=== PATIENT | male | born 1945 | race Caucasian/White ===

== ENCOUNTER 2019-02-09 01:48 | Inpatient (IN) | payer OTHER ==
--- NOTE | 2019-02-09 02:26 | EDPHYS ---
Physician Documentation [facility] Name: Jomar Ta Age: 73 yrs Sex: Male : 1945 Arrival Date: 02/09/2019 Time: 02:01 Bed 8 Private MD: ED Physician Laurent Wilson HPI: 02/09 02:07 This 73 yrs old Male presents to ER via EMS with complaints of chest pain. rn 02:07 The patient or guardian reports chest pain that is located primarily in the substernal rn area. Onset: last night. The pain does not radiate. Associated signs and symptoms: Pertinent positives: shortness of breath, Pertinent negatives: abdominal pain, cough, diaphoresis, lightheadedness, palpitations. The chest pain is described as a pressure, squeezing. Duration: The patient or guardian reports multiple episodes, that are intermittent. Modifying factors: The symptoms are alleviated by NTG. Severity of pain: At its worst the pain was moderate in the emergency department the pain has resolved. The patient has experienced similar episodes in the past. Reports chest pressure/heaviness that has increased in frequency, reports before only having to use nitro every few days and would relieve pain. Since last night has had to take 6 separate occasions. Currently chest pain free. Denies fever/cough/trauma. . Historical: - Allergies: 02:11 No Known Allergies; fc - Home Meds: 02:11 [place] 10-325 mg Oral tab 1 tab q4hrs prn [Active]; carvedilol 6.25 mg Oral tab 1 tab 2 fc times per day for Hypertension [Active]; amitriptyline 10 mg Oral tab 1 tab nightly [Active]; levothyroxine 100 mcg tab 1 tab once daily [Active]; clopidogrel 75 mg Oral tab 1 tab once daily [Active]; losartan 100 mg oral tab 1 tab once daily [Active]; atorvastatin 40 mg oral tab 1 tab once daily [Active]; aspirin 81 mg Oral TbEC 1 tab once daily [Active]; loratadine 10 mg oral tab 1 tab once daily [Active]; hydrochlorothiazide 12.5 mg Oral tab 1 tab 2 times per day [Active]; - PMHx: 02:11 Back pain; Cancer; Skin Caner; COPD; Myocardial infarction; CVA; Atrial Fib; fc Hyperlipidemia; Hypertension; Hypothyroidism; - PSHx: 02:11 CABG; Heart stents; fc - Immunization history:: Last tetanus immunization: up to date Flu vaccine is up to date. - Social history:: Smoking status: Patient uses tobacco products, smokes one-half pack cigarettes per day, Patient/guardian denies using alcohol, street drugs. - Ebola Screening: : Patient negative for fever greater than or equal to 101.5 degrees Fahrenheit, and additional compatible Ebola Virus Disease symptoms Patient denies exposure to infectious person Patient denies travel to an Ebola-affected area in the 21 days before illness onset. - Family history:: not pertinent. - Hospitalizations: : No recent hospitalization is reported. ROS: 02:07 Constitutional: Negative for fever, chills, and weight loss, Eyes: Negative for injury, rn pain, redness, and discharge, Cardiovascular: Negative for palpitations, and edema, Respiratory: Negative for shortness of breath, cough, wheezing, and pleuritic chest pain, Abdomen/GI: Negative for abdominal pain, nausea, vomiting, diarrhea, and constipation, MS/Extremity: Negative for injury and deformity, Skin: Negative for injury, rash, and discoloration, Neuro: Negative for headache, weakness, numbness, tingling, and seizure. Exam: 02:07 Constitutional: Overweight male, no acute distress Head/Face: Normocephalic, rn atraumatic. ENT: MMM Cardiovascular: Regular rate and rhythm. No pulse deficits. Respiratory: No increased work of breathing, no retractions or nasal flaring. Abdomen/GI: soft, non-tender MS/ Extremity: Pulses equal, no cyanosis. Neurovascular intact. Full, normal range of motion. + mild edema bilateral lower ext Neuro: Awake and alert, GCS 15, oriented to person, place, time, and situation. Cranial nerves II-XII grossly intact. Motor strength 5/5 in all extremities. Sensory grossly intact. Vital Signs: 01:46 BP 178 / 85; Pulse 86; Resp 18; Temp 97.7(O); Pulse Ox 100% on R/A; Weight 90.72 kg fc (R); Height 5 ft. 10 in. (177.80 cm) (R); Pain 3/10; 02:26 BP 142 / 79; Pulse 81; Resp 18; Pulse Ox 97% on R/A; ak1 03:01 BP 162 / 70; Pulse 82; Resp 20; Pulse Ox 97% ; ea 03:48 BP 136 / 66; Pulse 80; Resp 18; Pulse Ox 97% on R/A; ea 01:46 Body Mass Index 28.70 (90.72 kg, 177.80 cm) fc MDM: 02:02 Patient medically screened. rn 02:22 Differential diagnosis: acute myocardial infarction, coronary artery disease congestive rn visiting failure unstable angina. Data reviewed: vital signs, nurses notes, EKG, and as a result, I will admit patient. Counseling: I had a detailed discussion with the patient and/or guardian regarding: the historical points, exam findings, and any diagnostic results supporting the discharge/admit diagnosis, the need for further work-up and treatment in the hospital. Response to treatment: the patient's symptoms have markedly improved after treatment, and as a result, I will admit patient. 02:24 Admission orders: after a detailed discussion of the patient's condition and case, the airborne and air delivery specialist orders are written by me. 02/09 02:03 Order name: PT-INR; Complete Time: 02:53 02/09 02:03 Order name: Basic Metabolic Panel; Complete Time: 02:53 02/09 02:03 Order name: CBC with Diff; Complete Time: 02:53 02/09 02:03 Order name: NT PRO-BNP; Complete Time: 02:53 02/09 02:03 Order name: Troponin (emerg Dept Use Only); Complete Time: 02:53 02/09 02:31 Order name: Urine Dipstick--Ancillary (enter results); Complete Time: 02:53 cm6 02/09 02:03 Order name: XRAY Chest (1 view) 02/09 03:11 Order name: Lipid Profile [facility] 02/09 03:11 Order name: Lipid Profile [facility] 02/09 03:11 Order name: Troponin I [facility] 02/09 03:11 Order name: Troponin I [facility] 02/09 03:11 Order name: Troponin I [facility] 02/09 02:03 Order name: EKG; Complete Time: 02:04 rn 02/09 02:03 Order name: Cardiac monitoring; Complete Time: 02:28 rn 02/09 02:03 Order name: EKG - Nurse/Tech; Complete Time: 02:28 02/09 02:03 Order name: IV Saline Lock; Complete Time: 02:28 rn 02/09 02:03 Order name: Labs collected and sent; Complete Time: 02:28 rn 02/09 02:03 Order name: O2 Per Protocol; Complete Time: 02:28 rn 02/09 02:03 Order name: O2 Sat Monitoring; Complete Time: 02:28 rn 02/09 03:11 Order name: CONS Physician Consult [facility] 02/09 03:11 Order name: Heart Healthy [facility] 02/09 03:14 Order name: Echo with Doppler [facility] 02/09 03:14 Order name: EKG Electrocardiogram [facility] 02/09 03:14 Order name: EKG Electrocardiogram [facility] Administered Medications: 02:40 Drug: Aspirin Chewable Tablet 324 mg Route: PO; ak1 03:30 Follow up: Response: No adverse reaction; Pain is decreased ea Disposition: 02/09/19 02:24 Hospitalization ordered by Ashley Pace for Observation. Preliminary diagnosis are Chest pain, unspecified, Unstable angina. - Bed requested for Telemetry/MedSurg (observation). - Status is Observation. ea - Condition is Stable. - Problem is new. - Symptoms have improved. UTI on Admission? No Signatures: Dispatcher [employer] [facility] Brynn Sepulveda RN Laurent Funk MD MD rn Lasagna, Tonya RN RN tl1 Geno Pryor RN RN ak1 Glenny De León RN RN ea Corrections: (The following items were deleted from the chart) 03:14 03:11 Lipid Profile ordered. [facility] 03:14 03:11 Lipid Profile ordered. [facility] 03:24 02:24 Hospitalization Ordered by Ashley Pace MD for Observation. Preliminary tl1 diagnosis is Chest pain, unspecified; Unstable angina. Bed requested for Telemetry/MedSurg (observation). Status is Observation. Condition is Stable. Problem is new. Symptoms have improved. UTI on Admission? No. rn 03:58 03:24 02/09/2019 02:24 Hospitalization Ordered by Ashley Pace MD for Observation. ea Preliminary diagnosis is Chest pain, unspecified; Unstable angina. Bed requested for Telemetry/MedSurg (observation). Status is Observation. Condition is Stable. Problem is new. Symptoms have improved. UTI on Admission? No. tl1
--- NOTE | 2019-02-09 02:26 | ER ---
Nurse's Notes [facility] Name: Jomar Ta Age: 73 yrs Sex: Male : 1945 Arrival Date: 02/09/2019 Time: 02:01 Bed 8 Private MD: Diagnosis: Chest pain, unspecified;Unstable angina Presentation: 02/09 01:46 Presenting complaint: Patient states: that he is having chest pain on and off. When he fc has the chest pain he is short of breath but denies any nausea or vomiting. Has used 6 Nitro since 1999 last night. last one at 0100. Transition of care: patient was not received from another setting of care. Onset of symptoms was February 08, 2019 at 20:00. Risk Assessment: Do you want to hurt yourself or someone else? Patient reports no desire to harm self or others. Initial Sepsis Screen: Does the patient meet any 2 criteria? No. Patient's initial sepsis screen is negative. Does the patient have a suspected source of infection? No. Patient's initial sepsis screen is negative. Care prior to arrival: IV initiated. 20 GA, in the right antecubital area. 01:46 Method Of Arrival: EMS: [facility] 01:46 Acuity: CARROLL 3 fc Historical: - Allergies: 02:11 No Known Allergies; fc - Home Meds: 02:11 Media 10-325 mg Oral tab 1 tab q4hrs prn [Active]; carvedilol 6.25 mg Oral tab 1 tab 2 fc times per day for Hypertension [Active]; amitriptyline 10 mg Oral tab 1 tab nightly [Active]; levothyroxine 100 mcg tab 1 tab once daily [Active]; clopidogrel 75 mg Oral tab 1 tab once daily [Active]; losartan 100 mg oral tab 1 tab once daily [Active]; atorvastatin 40 mg oral tab 1 tab once daily [Active]; aspirin 81 mg Oral TbEC 1 tab once daily [Active]; loratadine 10 mg oral tab 1 tab once daily [Active]; hydrochlorothiazide 12.5 mg Oral tab 1 tab 2 times per day [Active]; - PMHx: 02:11 Back pain; Cancer; Skin Caner; COPD; Myocardial infarction; CVA; Atrial Fib; fc Hyperlipidemia; Hypertension; Hypothyroidism; - PSHx: 02:11 CABG; Heart stents; fc - Immunization history:: Last tetanus immunization: up to date Flu vaccine is up to date. - Social history:: Smoking status: Patient uses tobacco products, smokes one-half pack cigarettes per day, Patient/guardian denies using alcohol, street drugs. - Ebola Screening: : Patient negative for fever greater than or equal to 101.5 degrees Fahrenheit, and additional compatible Ebola Virus Disease symptoms Patient denies exposure to infectious person Patient denies travel to an Ebola-affected area in the 21 days before illness onset. - Family history:: not pertinent. - Hospitalizations: : No recent hospitalization is reported. Screenin:46 Abuse screen: Denies threats or abuse. Nutritional screening: No deficits noted. fc Tuberculosis screening: No symptoms or risk factors identified. Fall Risk None identified. Assessment: 02:26 General: Appears in no apparent distress. comfortable, Behavior is calm, cooperative. ak1 Pain: Complains of pain in chest. Neuro: Level of Consciousness is awake, alert, obeys commands, Oriented to person, place, time, situation. Cardiovascular: Reports chest pain, since 1999 last night. Respiratory: Airway is patent. GI: No signs and/or symptoms were reported involving the gastrointestinal system. : No signs and/or symptoms were reported regarding the genitourinary system. EENT: No signs and/or symptoms were reported regarding the EENT system. Derm: No signs and/or symptoms reported regarding the dermatologic system. Musculoskeletal: No signs and/or symptoms reported regarding the musculoskeletal system. 03:08 Reassessment: Patient and/or family updated on plan of care and expected duration. Pain ea level reassessed. Patient is alert, oriented x 3, equal unlabored respirations, skin warm/dry/pink. 03:57 Reassessment: Patient and/or family updated on plan of care and expected duration. Pain ea level reassessed. Patient is alert, oriented x 3, equal unlabored respirations, skin warm/dry/pink. Pt admitted to fourth floor, left ED via wheelchair per tech, accompanied by . Pt tolerating well. No s/s of pain or discomfort noted at this time. Vital Signs: 01:46 BP 178 / 85; Pulse 86; Resp 18; Temp 97.7(O); Pulse Ox 100% on R/A; Weight 90.72 kg fc (R); Height 5 ft. 10 in. (177.80 cm) (R); Pain 3/10; 02:26 BP 142 / 79; Pulse 81; Resp 18; Pulse Ox 97% on R/A; ak1 03:01 BP 162 / 70; Pulse 82; Resp 20; Pulse Ox 97% ; ea 03:48 BP 136 / 66; Pulse 80; Resp 18; Pulse Ox 97% on R/A; ea 01:46 Body Mass Index 28.70 (90.72 kg, 177.80 cm) ED Course: 01:46 Arm band placed on Patient placed in an exam room, on a stretcher. fc 01:46 Patient has correct armband on for positive identification. Placed in gown. Bed in low fc position. Call light in reach. Side rails up X2. apprentice lineman third step on. Pulse ox on. NIBP on. 01:46 No provider procedures requiring assistance completed. Maintain EMS IV. Dressing fc intact. Good blood return noted. Site clean \T\ dry. Gauge \T\ site: 20 gauge to right a/c. 02:01 Patient arrived in ED. rn 02:01 Laurent Wilson MD is Attending Physician. rn 02:06 Triage completed. 02:24 Ashley Pace MD is Hospitalizing Provider. rn 02:26 Geno Pryor, RN is Primary Nurse. ak1 02:26 Patient admitted, IV remains in place. ak1 Administered Medications: 02:40 Drug: Aspirin Chewable Tablet 324 mg Route: PO; ak1 03:30 Follow up: Response: No adverse reaction; Pain is decreased ea Outcome: 02:24 Decision to Hospitalize by Provider. rn 03:07 Instructed on the need for admit, Demonstrated understanding of instructions. ea 03:48 Admitted to Med/surg accompanied by [facility], room 429, with chart, Report called to Edie koehler RN 03:48 Condition: stable 03:58 Patient left the ED. ea Signatures: Brynn Sepulveda RN RN Laurent Wilson MD MD rn Krenek, Amber, RN RN ak1 Glenny De León RN RN ea Corrections: (The following items were deleted from the chart) 03:59 03:57 Reassessment: Patient and/or family updated on plan of care and expected ea duration. Pain level reassessed. Patient is alert, oriented x 3, equal unlabored respirations, skin warm/dry/pink. Pt admitted to fourth floor, left ED via wheelchair per tech. Pt tolerating well. No s/s of pain or discomfort noted at this time. ea
[2019-02-09] MEDS ORDERED: ASPIRIN 81 MG CHEWABLE TABLET ONE (02:31)
[2019-02-09 02:33] LABS: Absolute Lymphocytes (CBC) 1.4 K/uL (0.7-4.9); Basophils % 1.4 % (0-1.3); Hematocrit 36.6 % (39.6-49.0); Lymphocytes % 19.7 % (15.3-44.8); MPV 8.5 fL (7.6-11.3); RBC Red Blood Cell Count 3.89 M/uL (4.33-5.43)
[2019-02-09 02:37] LABS: Protime INR 1.1
[2019-02-09 02:48] LABS: BUN Blood Urea Nitrogen 14 mg/dL (7-18); Bicarbonate 24 mmol/L (21-32); Glucose Level 106 mg/dL (74-106); NT PRO-BNP 861 pg/mL (<125); Potassium 3.8 mmol/L (3.5-5.1); Sodium Level 136 mmol/L (136-145); Troponin (Emerg Dept Use Only) < 0.02 ng/mL (0.0-0.045)
[2019-02-09 02:50] LABS: Urine Blood NEGATIVE (NEG); Urine Glucose TRACE (NEG); Urine Protein NEGATIVE (NEG); Urine Specific Gravity 1.015 (1.005-1.030)
[2019-02-09] MEDS ORDERED: ACETAMINOPHEN 500 MG TAB PO PRN (03:04)
[2019-02-09] MEDS ORDERED: ALPRAZOLAM 0.25 MG TABLET PO PRN (03:04)
[2019-02-09] MEDS ORDERED: HEPARIN/D5W 25,000 UNIT/500 ML BAG IV SCH (04:00)
[2019-02-09 04:26] VITALS: BMI 28.5
[2019-02-09] MEDS: MORPHINE 4 MG/ML SYR IV PRN ×2 (05:00→16:42)
[2019-02-09] MEDS ORDERED: MORPHINE 2 MG/ML SYR IV ONE (06:18)
[2019-02-09] MEDS ORDERED: NITROGLYCERIN 1 GM PKT TD ONE (06:18)
[2019-02-09 06:34] LABS: HDL Cholesterol 54 mg/dL (40-60); LDL Cholesterol, Calculated 60 (<130); Troponin I < 0.02 ng/mL (0.0-0.045)
[2019-02-09] MEDS: METOPROLOL TAR 50 MG TAB PO SCH ×2 (07:48→08:55)
--- NOTE | 2019-02-09 08:08 | RAD REPORT ---
EXAM DESCRIPTION: RAD - Chest Single View - 02/09/2019 5:46 am CLINICAL HISTORY: CHEST PAIN Chest pain. COMPARISON: Chest Single View dated 04/11/2017; Chest Single View dated 09/15/2016; Chest Single View d ated 09/14/2016; CHEST SINGLE VIEW dated 01/24/2009 FINDINGS: Portable technique limits examination quality. Mild interstitial pulmonary edema. The heart is mildly enlarged with a tortuous thoracic aorta. Montero otomy wires present. IMPRESSION: Mild CHF versus volume overload pattern.
[2019-02-09] MEDS ORDERED: ATROPINE SULF 1 MG/10 ML SYR IV ONE (08:48)
[2019-02-09] MEDS ORDERED: NA CHLORIDE 0.9% 0 ML ONE (08:49)
[2019-02-09] MEDS ORDERED: METOPROLOL TAR 50 MG TAB PO SCH (09:00)
[2019-02-09] MEDS ORDERED: ASPIRIN EC 81 MG TAB PO SCH (09:00)
[2019-02-09] MEDS ORDERED: CLOPIDOGREL 75 MG TABLET PO SCH (09:00)
[2019-02-09] MEDS ORDERED: NA CHLORIDE 0.9% 1,000 ML ONE (09:10)
[2019-02-09] MEDS ORDERED: FENTANYL CITR 100 MCG/2 ML ONE (09:53)
[2019-02-09] MEDS ORDERED: MIDAZOLAM HCL 5 MG/5 ML INJ ONE (09:53)
[2019-02-09] MEDS ORDERED: HEPA 1000U/500MLS 1,000 UNIT/500 ML BAG IV ONE (09:53)
[2019-02-09] MEDS ORDERED: FLUMAZENIL 0.1 MG/ML (5 mL VIAL) IV ONE (10:35)
[2019-02-09] MEDS ORDERED: MIDAZOLAM HCL 2 MG/2 ML INJ ONE (10:35)
[2019-02-09] MEDS ORDERED: LIDOCAINE 1% MPF 30 ML VIAL ONE (10:40)
--- NOTE | 2019-02-09 12:35 | P.DS ---
Admission Date: 02/09/19 Discharge Date: 02/09/19 Primary Care Provider: Unknown; Pain management-Dr. Severino Disposition: ROUTINE DISCHARGE Discharge Condition: GOOD Reason for Admission: Chest pain Consultations: Cardiology-Dr. Byrne Procedures: Heart catheterization: Case discussed with cardiology. Patient has CAD. No stent requirement at this time. Continue medical management. Medical problem list: Chest pain status post heart catheterization showing CAD, continue medical management Hypertension Hypothyroidism Hyperlipidemia COPD Chronic pain Brief History of Present Illness: 73-year-old male with history of CAD, hypertension, hyperlipidemia, and COPD. Patient presented with chest pain. Patient was admitted for further evaluation. Hospital Course: Patient presented with chest pain. Patient with history of CAD. Cardiac enzymes unremarkable. Patient seen and evaluated by Cardiology. Heart catheterization was recommended. Heart catheterization showed CAD. No need for stent placement. Cardiology recommends continued medical management. At discharge Ranexa was added for chest pain. At discharge she will continue with Ranexa 500 mg 1 pill twice daily. Other medications will include aspirin 81 mg daily, Plavix 75 mg daily, losartan 100 mg daily, hydrochlorothiazide 12.5 mg daily, carvedilol 6.25 mg 1 pill twice daily, and Lipitor 40 mg daily. Recommend to follow up with cardiology in 1-2 weeks to follow up this hospitalization. Patient with hypertension. This has remained stable. At discharge he will continue with losartan 100 mg daily, hydrochlorothiazide 12.5 mg daily, and carvedilol 6.25 mg 1 pill twice daily. Recommend to maintain blood pressures less 150/80. Further adjustment can be done by his PCP or cardiology. Patient with hyperlipidemia. At discharge he will continue with Lipitor 40 mg daily. Patient with hypothyroidism. At discharge he will continue with levothyroxine 100 mcg daily. Patient with COPD. Patient will continue with his COPD medication. Recommend follow up with pulmonology to further evaluate and treat. Patient has chronic pain. He is seen by pain management. Patient takes hydrocodone as needed for pain. He will continue with his medication. Recommend follow up with pain management to further address his chronic pain. Vital Signs/Physical Exam: Temp Pulse Resp BP Pulse Ox 98.2 F 75 14 147/73 H 97 02/09/19 12:13 02/09/19 12:13 02/09/19 12:13 02/09/19 12:13 02/09/19 08:00 General: Alert, In no apparent distress, Oriented x3, Cooperative HEENT: Atraumatic Neck: Supple Respiratory: Clear to auscultation bilaterally, Normal air movement Cardiovascular: Normal pulses, Regular rate/rhythm Gastrointestinal: Normal bowel sounds, Soft and benign, Non-distended, No masses , No rebound, No guarding Musculoskeletal: No erythema, No tenderness, No warmth Integumentary: No tenderness/swelling, No erythema, No warmth, No cyanosis Neurological: Normal speech, Normal strength at 5/5 x4 extr, Normal tone, Normal affect Laboratory Data at Discharge: WBC 7.2 K/uL (4.3-10.9) 02/09/19 02:16 Hgb 12.2 g/dL (13.6-17.9) L 02/09/19 02:16 Hct 36.6 % (39.6-49.0) L 02/09/19 02:16 Plt Count 167 K/uL (152-406) 02/09/19 02:16 PT 12.9 SECONDS (9.5-12.5) H 02/09/19 02:16 INR 1.10 02/09/19 02:16 Sodium 136 mmol/L (136-145) 02/09/19 02:16 Potassium 3.8 mmol/L (3.5-5.1) 02/09/19 02:16 BUN 14 mg/dL (7-18) 02/09/19 02:16 Creatinine 1.01 mg/dL (0.55-1.3) 02/09/19 02:16 Glucose 106 mg/dL (74-106) 02/09/19 02:16 Troponin I < 0.02 ng/mL (0.0-0.045) 02/09/19 05:50 Triglycerides 50 mg/dL (<150) 02/09/19 05:50 Cholesterol 124 mg/dL (<200) 02/09/19 05:50 HDL Cholesterol 54 mg/dL (40-60) 02/09/19 05:50 Cholesterol/HDL Ratio 2.30 02/09/19 05:50 Home Medications: Aspirin [Adult Low Dose Aspirin EC] 81 mg PO DAILY 09/14/16 Carvedilol 6.25 mg PO BID 09/14/16 Clopidogrel Bisulfate [Plavix*] 75 mg PO DAILY 09/14/16 Hydrocodone/Acetaminophen [Hydrocodone-Acetamin 10-325 mg] 1 each PO Q4H PRN 03/21 Levothyroxine [Synthroid*] 100 mcg PO [id number] 09/14/16 Atorvastatin Calcium [Lipitor] 40 mg PO BEDTIME 04/11/17 Losartan Potassium [Cozaar] 100 mg PO DAILY 04/11/17 Albuterol Inhaler [Ventolin Inhaler*] 2 puff IH Q6H PRN 02/09/19 Amitriptyline [Elavil*] 10 mg PO BEDTIME 02/09/19 Ipratropium/Albuterol Sulfate [Combivent Respimat 20-100 Mcg] 4 gm IH Q6HP PRN 02/09/19 Loratadine 10 mg PO DAILY 02/09/19 Ranolazine [Ranexa] 500 mg PO BID #60 tab.er.12h 02/09/19 hydroCHLOROthiazide [Hydrochlorothiazide] 12.5 mg PO DAILY 02/09/19 New Medications: Ranolazine [Ranexa] 500 mg PO BID #60 tab.er.12h Patient Discharge Instructions: 1. Recommend follow up with his PCP in 1-2 weeks to follow up this hospitalization. 2. Patient presented with chest pain. Patient with history of CAD. Cardiac enzymes unremarkable. Patient seen and evaluated by Cardiology. Heart catheterization was recommended. Heart catheterization showed CAD. No need for stent placement. Cardiology recommends continued medical management. At discharge Ranexa was added for chest pain. At discharge she will continue with Ranexa 500 mg 1 pill twice daily. Other medications will include aspirin 81 mg daily, Plavix 75 mg daily, losartan 100 mg daily, hydrochlorothiazide 12.5 mg daily, carvedilol 6.25 mg 1 pill twice daily, and Lipitor 40 mg daily. Recommend to follow up with cardiology in 1-2 weeks to follow up this hospitalization. 3. Patient with hypertension. This has remained stable. At discharge he will continue with losartan 100 mg daily, hydrochlorothiazide 12.5 mg daily, and carvedilol 6.25 mg 1 pill twice daily. Recommend to maintain blood pressures less 150/80. Further adjustment can be done by his PCP or cardiology. 4. Patient with hyperlipidemia. At discharge he will continue with Lipitor 40 mg daily. 5. Patient with hypothyroidism. At discharge he will continue with levothyroxine 100 mcg daily. 6. Patient with COPD. Patient will continue with his COPD medication. Recommend follow up with pulmonology to further evaluate and treat. 7. Patient has chronic pain. He is seen by pain management. Patient takes hydrocodone as needed for pain. He will continue with his medication. Recommend follow up with pain management to further address his chronic pain. Diet: AHA Activity: Ad marco Time spent managing pt's care (in minutes): 55
[2019-02-09 13:57] VITALS: O2SAT 98
[2019-02-09 17:12] VITALS: BP 146/63; TEMP 98
--- NOTE | 2019-02-09 17:25 | EKG ---
Test Date: 2019-02-09 Test Time: 02:18:07 Manager Reading: VASILIY MEASUREMENT RESULTS: Intervals: Rate: 81 MI: 186 QRSD: 102 QT: 396 QTc: 460 [place]: P: 64 MI: 186 QRS: -16 T: 65 INTERPRETIVE STATEMENTS: Sinus rhythm with premature atrial complexes Possible Left atrial enlargement Borderline ECG Compared to ECG 04/11/2017 04:04:10 Atrial premature complex(es) now present Electronically Signed On 02-09-19 17:21:52 COMMUNITY DEVELOPMENT DIRECTOR by Martínez Byrne
--- NOTE | 2019-02-09 18:00 | ECHO ---
HEIGHT: 5 ft 10 in WEIGHT: 199 lb 6.4 oz DATE OF STUDY: 02/09/[address]: Ashley Pace MD 2-DIMENSIONAL: YES M.MODE: YES DOPPLER: YES COLOR FLOW: YES TDS: PORTABLE: DEFINITY: BUBBLE STUDY: DIAGNOSIS: CHEST PAIN CARDIAC HISTORY: CATHERIZATION: YES SURGERY: NO PROSTHETIC VALVE: NO PACEMAKER: NO MEASUREMENTS (cm) DIASTOLIC (NORMALS) SYSTOLIC (NORMALS) IVSd 1.2 (0.6-1.2) LVEF 57% LVIDd 4.6 (3.5-5.7) LVIDs 3.3 (2.0-3.5) %FS 30% LVPWd 1.2 (0.6-1.2) Ao Diam 2.8 (2.0-3.7) 2 DIMENSIONAL ASSESSMENT: RIGHT ATRIUM: NORMAL LEFT ATRIUM: NORMAL RIGHT VENTRICLE: NORMAL LEFT VENTRICLE: NORMAL TRICUSPID VALVE: NORMAL MITRAL VALVE: NORMAL PULMONIC VALVE: NORMAL AORTIC VALVE: SCLEROSIS PERICARDIAL EFFUSION: NONE AORTIC ROOT: NORMAL LEFT VENTRICULAR WALL MOTION: NORMAL DOPPLER/COLOR FLOW: NORMAL COMMENTS: AORTIC SCLEROSIS. NO STENOSIS. NORMAL LEFT VENTRICULAR SIZE AND FUNCTION. NO WALL MOTION ABNORMALITY. NO EFFUSION. TECHNOLOGIST: KARIE WATSON
[2019-02-09] MEDS ORDERED: ATORVASTATIN 20 MG TAB PO SCH (21:00)
--- NOTE | 2019-02-09 21:02 | OP ---
Date of Procedure: 02/09/2019 Surgeon: Martínez Byrne MD Supervisor Histology: Liborio Aragon. Procedures: Left heart catheterization, selective coronary arteriogram, vein graft injection to the OM, REEDER injection. Indication: Unstable angina, coronary artery disease, peripheral vascular disease status post bypass and stents. Description Of Procedure: Mr. Ta is 73, came into the hospital with unstable angina, [place] ruled ou t. Brought into the medical laboratory specialist as an inpatient. He was sedated with Versed and fentanyl. He was prep ped and draped in the routine sterile fashion. Initial attempt was to put a sheath in the right comm on femoral artery, but that artery was very calcified and appeared to be obstructed. There were almo st no pulse there. A femoral artery sheath was introduced in the left common femoral artery without any complication. JL4 was used to inject the left main, which showed a 99% stenosis. The ostium of the circumflex also had a 99% stenosis. The ostium of the LAD was 100% occluded. Competitive flow f rom the REEDER and vein graft to the OM was seen on that injection. A JR4 was used to selectively laura ulate the right coronary artery, which was very small, nondominant, 99% stenosed. The same catheter was used to cannulate the OM graft, which was patent and is going to the OM1. The REEDER was injected via subclavian artery and showed that it was patent to the mid distal LAD with excellent distal flow. There were no complications. Blood Loss: 10 mL. Postoperative Diagnosis: Severe coronary artery disease, plan is for medical therapy. Anesthesia: Total conscious sedation was 45 minutes. I am going to probably add either Imdur or Ranexa to his regimen, which already include beta-blockers , aspirin and Plavix and Lipitor. Of note, angiography of the left common femoral artery showed a st ent in the left common iliac artery and which shows to hold pressure for hemostasis. On that injecti on, it was obvious that the right common iliac artery ostium appeared to be stenosed. GRISELDA/CHANDNI Voice ID: [id number] Report ID: [id number]
--- NOTE | 2019-02-09 23:54 | CON ---
Date of Consultation: 02/09/2019 Reason For Consultation: Unstable angina. History Of Present Illness: Mr. Ta is a 73-year-old white male. He is known to us from previous hospital admissions. He is a patient of Dr. Lopez. He has had a history of coronary artery bypas s surgery by Dr. Saenz in the past. He has had a history of stent after that. He also has had a history of CVA, atrial fibrillation, hypothyroidism, hypertension, dyslipidemia, COPD, and chronic diastolic congestive heart failure. He began to have substernal chest pain radiating to both arms a nd the jaw; unrelieved with nitroglycerin, aspirin, and morphine. His PR has ruled out. EKG showed inferolateral ischemia. He denied PND, orthopnea, pedal edema, palpitation, or syncope. Denied any fever or chills. His symptoms have been going on for about 12 to 14 hours. His symptoms are exertio nal and nonexertional. Allergies: NONE. Review of Systems: Negative. Social History: Positive for tobacco and alcohol. Family History: Positive for heart disease. Medications: At home include Gary, aspirin, carvedilol, Lipitor, hydrochlorothiazide, Plavix, Synth roid, losartan. Physical Examination: General: Mr. Ta was in significant distress. Chest pain he rated at up to 7/10, radiating to th e jaw. Vital Signs: Otherwise stable. He was in sinus rhythm. HEENT: Negative. Neck: Supple without any bruit, lymphadenopathy, JVD, or thyromegaly. Chest: Clear to auscultation and percussion. Cardiac: Revealed a regular rhythm and rate with S4 gallops. No murmurs or rubs. Abdomen: Benign. Extremities: No clubbing, cyanosis, or edema. Skin: Dry and intact. Neurologic: Nonfocal. Pulses were present in the left femoral artery area. The right femoral pulse with decreased dorsalis pedis and posterior tibial were absent bilaterally. Diagnostic Data: EKG shows inferolateral ischemia. Chest x-ray was negative. Troponin was negative . BNP was 861. Impression: 1.Unstable angina. 2.Coronary artery disease, status post coronary artery bypass grafting and stent. 3.Chronic diastolic congestive heart failure. 4.Hypertension. 5.Dyslipidemia. 6.Chronic obstructive pulmonary disease. 7.History of chronic pain, status post pain pump. 8.History of cerebrovascular accident. 9.History of atrial fibrillation that is resolved. 10.History of hypothyroidism. Plan: Mr. Ta needs to be back on his medication including his carvedilol, Plavix, aspirin, and l osartan as well as Lipitor. I think we need to increase his carvedilol dose to 12.5 mg twice a day a nd I think we need to make sure his Lipitor 80 mg once a day. I will plan to do a left heart cathete rization on him today. He understands the risks and the benefits of the procedure and he agreed to p roceed. The case was discussed with Dr. Pace and the nurses. 55 minutes was spent in the care of Mr. Ta. GRISELDA/CHANDNI Voice ID: [id number] Report ID: [id number]
== END 2019-02-09 19:00 | disposition home or self-care (01) | DRG 287 ==
LOC: ER 01:48 → ERHOLD 03:13 → 4TH 03:28 → ERHOLD 03:29 → 4TH 03:41
PROVIDERS: ADMIT Hospitalist; ATTEND Family Medicine
PROC: 4A023N7 Measurement of Cardiac Sampling and Pressure, Left Heart, Percutaneous Approach (ICD-10-PCS; principal; 2019-02-09)
PROC: B201YZZ Plain Radiography of Multiple Coronary Arteries using Other Contrast (ICD-10-PCS; 2019-02-09)
PROC: B205YZZ Plain Radiography of Left Heart using Other Contrast (ICD-10-PCS; 2019-02-09)
DX: I25.110 Atherosclerotic heart disease of native coronary artery with unstable angina pectoris (principal); I50.32 Chronic diastolic (congestive) heart failure; E03.9 Hypothyroidism, unspecified; E78.5 Hyperlipidemia, unspecified; J44.9 Chronic obstructive pulmonary disease, unspecified; G89.29 Other chronic pain; I11.0 Hypertensive heart disease with heart failure; Z86.73 Personal history of transient ischemic attack (TIA), and cerebral infarction without residual deficits; Z95.1 Presence of aortocoronary bypass graft
CPT/HCPCS: 36415; 71045; 80048; 80061; 81003; 83880; 84484; 85025; 85610; 93005; 93306; 93455; 99285; C1893; J0583; J1644; J2250; J2270; J3010; J7030

== ENCOUNTER 2019-02-12 06:54 | Observation (INO) | payer OTHER ==
[2019-02-12] MEDS ORDERED: NA CHLORIDE 0.9% 500 ML ONE (07:18)
[2019-02-12 08:06] LABS: Absolute Lymphocytes (CBC) 1.4 K/uL (0.7-4.9); Hematocrit 36.2 % (39.6-49.0); Lymphocytes % 14.4 % (15.3-44.8); MPV 8.3 fL (7.6-11.3); RBC Red Blood Cell Count 3.88 M/uL (4.33-5.43)
[2019-02-12 08:09] LABS: Protime INR 1.08
[2019-02-12] MEDS ORDERED: FENTANYL CITR 100 MCG/2 ML ONE (08:22)
[2019-02-12 08:35] LABS: Glucose Level 114 mg/dL (74-106)
[2019-02-12 08:36] LABS: ALT/SGPT 19 U/L (12-78); AST/SGOT 27 U/L (15-37); Alkaline Phosphatase 41 U/L (45-117); BUN Blood Urea Nitrogen 11 mg/dL (7-18); Bilirubin Direct 0.3 mg/dL (0-0.2); Bilirubin Total 1.2 mg/dL (0.2-1.0)
[2019-02-12 08:37] LABS: Albumin 3.5 g/dL (3.4-5.0); Protein, Total 6.9 g/dL (6.4-8.2)
[2019-02-12 08:40] LABS: Sodium Level 136 mmol/L (136-145)
--- NOTE | 2019-02-12 08:51 | RAD REPORT ---
EXAM DESCRIPTION: Pilar Single View02/12/2019 7:28 am CLINICAL HISTORY: Chest pain COMPARISON: February 09, 2019 FINDINGS: The lungs appear clear of acute infiltrate. The heart is borderline enlarged Postsurgical changes involve the chest. IMPRESSION: No acute abnormalities displayed
--- NOTE | 2019-02-12 09:02 | RAD REPORT ---
EXAM DESCRIPTION: CT - Chest For Pe Angio - 02/12/2019 8:11 am CLINICAL HISTORY: hemoptysis;Chest pain COMPARISON: None. TECHNIQUE: Dynamically enhanced axial 3 mm thick images of the chest were obtained during administra tion of <100> mL Isovue 370 IV contrast. Coronal and oblique reconstruction images were generated and reviewed. Exam utilizes a protocol for optimal evaluation of pulmonary arterial tree. Maximum intensity projections 3D imaging was utilized All CT scans are performed using dose optimization technique as appropriate and may include automated exposure control or mA/KV adjustment according to patient size. FINDINGS: A pulmonary embolus is not seen. A thoracic aortic aneurysm is not noted. A pleural effusion is not seen. A pericardial effusion is not seen. A lung consolidation is not present. Centrilobular emphysema is present IMPRESSION: Negative for a pulmonary embolism.
[2019-02-12] MEDS ORDERED: LORazepam 2 MG/ML VIAL ONE (09:18)
[2019-02-12 10:24] LABS: Bicarbonate 25 mmol/L (21-32); Magnesium 1.8 mg/dL (1.8-2.4); NT PRO-BNP 592 pg/mL (<125); Troponin (Emerg Dept Use Only) < 0.02 ng/mL (0.0-0.045)
--- NOTE | 2019-02-12 11:42 | EDPHYS ---
Physician Documentation [facility] Name: Jomar Ta Age: 73 yrs Sex: Male : 1945 Arrival Date: 02/12/2019 Time: 06:57 Bed 6 Private MD: ED Physician Ashley Carranza HPI: 02/12 07:21 This 73 yrs old Male presents to ER via EMS with complaints of Chest Pain. snw 07:21 Onset: The symptoms/episode began/occurred suddenly. Associated signs and symptoms: snw Pertinent positives: HTN with radiation to bilateral arms. Modifying factors: The patient symptoms are alleviated by nothing. The patient has experienced similar episodes in the past, multiple times. The patient has been recently seen by a physician: with similar presenting complaints, and apparently given a diagnosis of unstable angina. Historical: - Allergies: 07:00 No Known Allergies; rr5 - Home Meds: 07:00 amitriptyline 10 mg Oral tab 1 tab nightly [Active]; aspirin 81 mg Oral TbEC 1 tab once rr5 daily [Active]; Hydrocodone-Acetaminophen Oral [Active]; carvedilol 6.25 mg Oral tab 1 tab 2 times per day for Hypertension [Active]; amitriptyline Oral [Active]; levothyroxine 100 mcg tab 1 tab once daily [Active]; clopidogrel 75 mg Oral tab 1 tab once daily [Active]; losartan 100 mg Oral tab 1 tab once daily [Active]; atorvastatin 40 mg Oral tab 1 tab once daily [Active]; Aspirin Oral [Active]; loratadine 10 mg Oral tab 1 tab once daily [Active]; hydrochlorothiazide 12.5 mg Oral tab 1 tab 2 times per day [Active]; [place] 10-325 mg Oral tab 1 tab q4hrs prn [Active]; - PMHx: 07:00 Atrial Fib; Back pain; Cancer; COPD; CVA; Hyperlipidemia; Hypothyroidism; Hypertension; rr5 Myocardial infarction; Skin Caner; - PSHx: 07:00 CABG; Angioplasty; rr5 - Immunization history:: Adult Immunizations up to date. - Social history:: Smoking status: Patient uses tobacco products, 5 sticks, Patient/guardian denies using alcohol, street drugs. - Ebola Screening: : No symptoms or risks identified at this time. ROS: 07:21 Eyes: Negative for injury, pain, redness, and discharge, ENT: Negative for injury, snw pain, and discharge, Neck: Negative for injury, pain, and swelling. 07:21 Abdomen/GI: Negative for abdominal pain, nausea, vomiting, diarrhea, and constipation, Back: Negative for injury and pain, : Negative for injury, bleeding, discharge, and swelling, MS/Extremity: Negative for injury and deformity, Skin: Negative for injury, rash, and discoloration, Neuro: Negative for headache, weakness, numbness, tingling, and seizure. 07:21 Constitutional: Positive for body aches, malaise. 07:21 Cardiovascular: Positive for chest pain, orthopnea. 07:21 Respiratory: Positive for cough, hemoptysis. Exam: 07:21 Constitutional: This is a well developed, well nourished patient who is awake, alert, snw and in no acute distress. Pallor, looks older than stated age Head/Face: Normocephalic, atraumatic. Eyes: Pupils equal round and reactive to light, extra-ocular motions intact. Lids and lashes normal. Conjunctiva and sclera are non-icteric and not injected. Cornea within normal limits. Periorbital areas with no swelling, redness, or edema. ENT: Nares patent. No nasal discharge, no septal abnormalities noted. Tympanic membranes are normal and external auditory canals are clear. Oropharynx with no redness, swelling, or masses, exudates, or evidence of obstruction, uvula midline. Mucous membranes moist. Neck: Trachea midline, no thyromegaly or masses palpated, and no cervical lymphadenopathy. Supple, full range of motion without nuchal rigidity, or vertebral point tenderness. No Meningismus. Chest/axilla: Normal chest wall appearance and motion. Nontender with no deformity. No lesions are appreciated. Cardiovascular: Regular rate and rhythm with a normal S1 and S2. No gallops, murmurs, or rubs. Normal PMI, no JVD. No pulse deficits. 07:21 Abdomen/GI: Soft, non-tender, with normal bowel sounds. No distension or tympany. No guarding or rebound. No evidence of tenderness throughout. Back: No spinal tenderness. No costovertebral tenderness. Full range of motion. Skin: Warm, dry with normal turgor. Pale color with no rashes, no lesions, and no evidence of cellulitis. MS/ Extremity: Pulses equal, no cyanosis. Neurovascular intact. Full, normal range of motion. Neuro: Awake and alert, GCS 15, oriented to person, place, time, and situation. Cranial nerves II-XII grossly intact. Motor strength 5/5 in all extremities. Sensory grossly intact. Cerebellar exam normal. Normal gait. Psych: Awake, alert, with orientation to person, place and time. Behavior, mood, and affect are within normal limits. 07:21 Respiratory: the patient does not display signs of respiratory distress, Respirations: normal, Breath sounds: rhonchi, that are mild, that are moderate, are heard diffusely. 07:26 ECG was reviewed by the Attending Physician. snw Vital Signs: 07:00 BP 141 / 71; Pulse 81; Resp 19; Temp 98.7; Pulse Ox 99% ; Weight 90.72 kg; Height 5 ft. rr5 10 in. (177.80 cm); Pain 3/10; 08:26 BP 159 / 79; Pulse 88; Resp 18; Pulse Ox 99% on R/A; Pain 10/10; sg 09:13 BP 133 / 87; Pulse 85; Resp 16 S; Pulse Ox 98% on R/A; sg 10:15 BP 94 / 62; Pulse 84; Resp 17; Pulse Ox 99% on R/A; hb 11:15 BP 116 / 70; Pulse 76; Resp 17; Pulse Ox 100% on R/A; hb 12:00 BP 122 / 66; Pulse 80; Resp 17; Pulse Ox 99% on R/A; hb 13:49 BP 118 / 68; Pulse 77; Resp 15; Pulse Ox 99% on R/A; hb 16:17 BP 108 / 62; Pulse 72 MON; Resp 16; Temp 98.7; Pulse Ox 99% on R/A; Pain 2/10; sg 07:00 Body Mass Index 28.70 (90.72 kg, 177.80 cm) rr5 MDM: 07:21 Patient medically screened. snw 10:55 Data reviewed: vital signs, nurses notes. Data interpreted: Pulse oximetry: on room air snw is 99 %. Interpretation: normal. Counseling: I had a detailed discussion with the patient and/or guardian regarding: the historical points, exam findings, and any diagnostic results supporting the discharge/admit diagnosis, the presence of at least one elevated blood pressure reading (>120/80) during this emergency department visit, lab results, radiology results, the need for further work-up and treatment in the hospital. Physician consultation: Enrrique Hooks was called at 10:56, regarding admission, to the telemetry unit. 11:19 Physician consultation: would like consultation with Dr. Dr. Byrne. snw 11:25 Physician consultation: Martínez Byrne MD was called at 11:25, was contacted at 11:25, snw regarding consult, Pt with quileute cardiac disease, grafts with "wide open" flow. Pt is non-compliant with medication regimen and believes he requires Morphine. Pt did not obtain Ranexa as directed s/p recent hospitalization/cath.. 02/12 07:09 Order name: Basic Metabolic Panel; Complete Time: 10:28 snw 02/12 07:09 Order name: CBC with Diff; Complete Time: 08:35 snw 02/12 07:09 Order name: LFT's; Complete Time: 10:28 snw 02/12 07:09 Order name: Magnesium; Complete Time: 10:28 snw 02/12 07:09 Order name: NT PRO-BNP; Complete Time: 10:28 snw 02/12 07:09 Order name: PT-INR; Complete Time: 08:35 snw 02/12 07:09 Order name: Troponin (emerg Dept Use Only); Complete Time: 10:28 snw 02/12 07:09 Order name: XRAY Chest (1 view); Complete Time: 09:13 snw 02/12 07:09 Order name: TS; Complete Time: 10:24 snw 02/12 07:09 Order name: TSH; Complete Time: 10:28 snw 02/12 07:09 Order name: CT Chest For PE Angio; Complete Time: 10:24 snw 02/12 07:09 Order name: EKG; Complete Time: 07: snw 02/12 07:09 Order name: Cardiac monitoring; Complete Time: 07: snw 02/12 07:09 Order name: EKG - Nurse/Tech; Complete Time: 07:10 snw 02/12 07:09 Order name: IV Saline Lock; Complete Time: 07: snw 02/12 07:09 Order name: Labs collected and sent; Complete Time: 07:10 snw 02/12 07:09 Order name: O2 Per Protocol; Complete Time: 07:10 snw 02/12 07:09 Order name: O2 Sat Monitoring; Complete Time: 07:13 snw 02/12 13:00 Order name: Diet Heart Healthy; Complete Time: 13:01 snw Administered Medications: 07:27 Drug: NS 0.9% 250 ml Route: IV; Rate: 50 ml/hr; Site: right antecubital; sg 10:11 Follow up: IV Status: Completed infusion; IV Intake: 250ml sg 08:20 Drug: fentaNYL (PF) 50 mcg {Note: RASS +1.} Route: IVP; Site: right antecubital; sg 08:40 Follow up: Response: No adverse reaction; Pain is decreased; RASS: Alert and Calm (0) sg 09:22 Drug: Ativan 2 mg Route: IVP; Site: right antecubital; sg 09:50 Follow up: Response: No adverse reaction; RASS: Drowsy (-1) Disposition: 02/13 16:45 Co-signature as Attending Physician, Ashley Carranza MD. ct2 Disposition: 02/12/19 11:41 Hospitalization ordered by Enrrique Hooks for Observation. Preliminary diagnosis is Chest pain, unspecified. - Bed requested for Telemetry/MedSurg (observation). - Status is Observation. sg - Condition is Stable. - Problem is an acute exacerbation. - Symptoms are unchanged. UTI on Admission? No Signatures: Dispatcher [employer] Manju Marino RN RN dw Antonio Ashraf RN RN sg Svetlana Zapata, RN IMAGING-C RN IMAGING-Csnw Xochilt Ocasio, RN RN 1 Ashley Carranza MD MD ct2 Yuri Gant RN RN rr5 Corrections: (The following items were deleted from the chart) 02/12 15:04 11:41 Hospitalization Ordered by Enrrique Hooks for Observation. Preliminary diagnosis dw is Chest pain, unspecified. Bed requested for Telemetry/MedSurg (observation). Status is Observation. Condition is Stable. Problem is an acute exacerbation. Symptoms are unchanged. UTI on Admission? No. snw 15:07 15:04 02/12/2019 11:41 Hospitalization Ordered by Enrrique Hooks for Observation. dw Preliminary diagnosis is Chest pain, unspecified. Bed requested for Telemetry/MedSurg (observation). Status is Observation. Condition is Stable. Problem is an acute exacerbation. Symptoms are unchanged. UTI on Admission? No. dw 16:57 15:07 02/12/2019 11:41 Hospitalization Ordered by Enrrique Hooks for Observation. sg Preliminary diagnosis is Chest pain, unspecified. Bed requested for Telemetry/MedSurg (observation). Status is Observation. Condition is Stable. Problem is an acute exacerbation. Symptoms are unchanged. UTI on Admission? No. dw
--- NOTE | 2019-02-12 11:42 | ER ---
Nurse's Notes [facility] Name: Jomar Ta Age: 73 yrs Sex: Male : 1945 Arrival Date: 02/12/2019 Time: 06:57 Bed 6 Private MD: Diagnosis: Chest pain, unspecified Presentation: 02/12 07:00 Presenting complaint: EMS states: complaining of chest pain last night and coughing out rr5 blood. ronchi all over the lobe. ASA 160 mg tablet given nitro tablet given x 1, nitro paste 1/2 inch placed on left chest. 07:00 Transition of care: patient was not received from another setting of care. Onset of rr5 symptoms was February 11, 2019. Risk Assessment: Do you want to hurt yourself or someone else? Patient reports no desire to harm self or others. Initial Sepsis Screen: Does the patient meet any 2 criteria? No. Patient's initial sepsis screen is negative. Does the patient have a suspected source of infection? No. Patient's initial sepsis screen is negative. Note as verbalized by the patient yesterday morning around 0600 started having chest pain took nitro feels relieved then 8PM chest pain came back nitro given pain score 7/10. pain radiates to neck and left arm. Care prior to arrival: Medication(s) given: ASA, Nitroglycerin, x 1, nitro paste at left chest. 07:00 Method Of Arrival: EMS: [facility] rr5 07:00 Acuity: CARROLL 3 rr5 07:00 Note ASA 2 tablet taken by patient at home as verbalized by the patient. rr5 Triage Assessment: 07:00 General: Appears in no apparent distress. comfortable, Behavior is calm, cooperative, rr5 appropriate for age. Pain: Complains of pain in chest Pain radiates to neck and left arm Pain currently is 3 out of 10 on a pain scale. Quality of pain is described as aching, Pain began 1 day ago. Is intermittent. Neuro: Level of Consciousness is awake, alert, obeys commands, Oriented to person, place, time, situation, Appropriate for age. Cardiovascular: Reports chest pain, Capillary refill < 3 seconds Patient's skin is warm and dry. on nitro paste at left chest. Respiratory: Airway is patent Respiratory effort is even, unlabored, Respiratory pattern is regular, symmetrical. 07:00 Derm: Reports skin cancer. rr5 Historical: - Allergies: 07:00 No Known Allergies; rr5 - Home Meds: 07:00 amitriptyline 10 mg Oral tab 1 tab nightly [Active]; aspirin 81 mg Oral TbEC 1 tab once rr5 daily [Active]; Hydrocodone-Acetaminophen Oral [Active]; carvedilol 6.25 mg Oral tab 1 tab 2 times per day for Hypertension [Active]; amitriptyline Oral [Active]; levothyroxine 100 mcg tab 1 tab once daily [Active]; clopidogrel 75 mg Oral tab 1 tab once daily [Active]; losartan 100 mg Oral tab 1 tab once daily [Active]; atorvastatin 40 mg Oral tab 1 tab once daily [Active]; Aspirin Oral [Active]; loratadine 10 mg Oral tab 1 tab once daily [Active]; hydrochlorothiazide 12.5 mg Oral tab 1 tab 2 times per day [Active]; Jewell 10-325 mg Oral tab 1 tab q4hrs prn [Active]; - PMHx: 07:00 Atrial Fib; Back pain; Cancer; COPD; CVA; Hyperlipidemia; Hypothyroidism; Hypertension; rr5 Myocardial infarction; Skin Caner; - PSHx: 07:00 CABG; Angioplasty; rr5 - Immunization history:: Adult Immunizations up to date. - Social history:: Smoking status: Patient uses tobacco products, 5 sticks, Patient/guardian denies using alcohol, street drugs. - Ebola Screening: : No symptoms or risks identified at this time. Screenin:02 Abuse screen: Denies threats or abuse. Denies injuries from another. Nutritional lp1 screening: No deficits noted. Tuberculosis screening: No symptoms or risk factors identified. 09:00 Fall Risk None identified. sg Assessment: 07:11 Reassessment: Patient appears in no apparent distress at this time. sg 07:13 Reassessment: IV attempt successful, no blood obtain, inside lab contacted for sg assistance with lab draw, awaiting phlebotomy at this time. 07:27 Reassessment: Patient appears in no apparent distress at this time. Gwen at bedside sg for lab draw at this time. 08:15 Reassessment: Patient appears in no apparent distress at this time. pt back from CT, sg complaining of pain in chest, back, neck and left arm that is a 01/12, orders received, pt medicated see EMAR. 09:15 Reassessment: Patient appears in no apparent distress at this time. Patient and/or sg family updated on plan of care and expected duration. Pain level reassessed. Patient is alert, oriented x 3, equal unlabored respirations, skin warm/dry/pink. pt reports having the pain coming back at this time, new orders received. see EMAR. 09:47 Reassessment: Patient appears in no apparent distress at this time. Patient and/or sg family updated on plan of care and expected duration. Pain level reassessed. pt sitting upright in bed, eyes closed, resp even and unlabored, pt family at bedside at this time reports "hes been sleeping pretty good right now." will continue to monitor. 11:00 Reassessment: Patient appears in no apparent distress at this time. at bedside sg assessing pt at this time. 12:00 Reassessment: Patient appears in no apparent distress at this time. Patient and/or hb family updated on plan of care and expected duration. Pain level reassessed. Patient is alert, oriented x 3, equal unlabored respirations, skin warm/dry/pink. 13:00 Reassessment: Patient appears in no apparent distress at this time. Patient and/or hb family updated on plan of care and expected duration. Pain level reassessed. Patient is alert, oriented x 3, equal unlabored respirations, skin warm/dry/pink. Admission ordered, awaiting room assignment at this time. 15:58 Reassessment: Pt c/o upper abdomen and epigastric pain 8/10. Morphine 2mg IVP hb admnistered per Dr. Hooks [facility] orders. Vital Signs: 07:00 BP 141 / 71; Pulse 81; Resp 19; Temp 98.7; Pulse Ox 99% ; Weight 90.72 kg; Height 5 ft. rr5 10 in. (177.80 cm); Pain 3/10; 08:26 BP 159 / 79; Pulse 88; Resp 18; Pulse Ox 99% on R/A; Pain 10/10; sg 09:13 BP 133 / 87; Pulse 85; Resp 16 S; Pulse Ox 98% on R/A; sg 10:15 BP 94 / 62; Pulse 84; Resp 17; Pulse Ox 99% on R/A; hb 11:15 BP 116 / 70; Pulse 76; Resp 17; Pulse Ox 100% on R/A; hb 12:00 BP 122 / 66; Pulse 80; Resp 17; Pulse Ox 99% on R/A; hb 13:49 BP 118 / 68; Pulse 77; Resp 15; Pulse Ox 99% on R/A; hb 16:17 BP 108 / 62; Pulse 72 MON; Resp 16; Temp 98.7; Pulse Ox 99% on R/A; Pain 2/10; sg 07:00 Body Mass Index 28.70 (90.72 kg, 177.80 cm) rr5 ED Course: 06:57 Patient arrived in ED. ss 06:58 Svetl[facility]apata F[facility]-C [facility] snw 06:58 Ashley Carranza MD is Attending Physician. snw 07:02 Patient has correct armband on for positive identification. Placed in gown. Bed in low lp1 position. Call light in reach. monitor technician on. Pulse ox on. NIBP on. 07:02 EKG done, by ED staff, reviewed by Svetlana ATKINS. lp1 07:05 Arm band placed on. lp1 07:07 Triage completed. rr5 07:11 Inserted saline lock: 22 gauge in right antecubital area, using aseptic technique. sg Blood collected. Patient maintains SpO2 saturation greater than 95% on room air. 07:12 IV IV from EMS DC'd due to infiltration. sg 07:14 Radiology exam delayed due to lab results not completed at this time. (BUN/Creatinine). vm2 07:17 Antonio Ashraf, RN is Primary Nurse. sg 07:28 XRAY Chest (1 view) In Process Unspecified. EDMS 08:10 CT completed. Patient tolerated procedure well. Patient moved back from CT. bq 08:12 CT Chest For PE Angio In Process Unspecified. EDMS 11:40 Enrrique Hooks is Hospitalizing Provider. snw 16:45 No provider procedures requiring assistance completed. Patient admitted, IV remains in sg place. Administered Medications: 07:27 Drug: NS 0.9% 250 ml Route: IV; Rate: 50 ml/hr; Site: right antecubital; sg 10:11 Follow up: IV Status: Completed infusion; IV Intake: 250ml sg 08:20 Drug: fentaNYL (PF) 50 mcg {Note: RASS +1.} Route: IVP; Site: right antecubital; sg 08:40 Follow up: Response: No adverse reaction; Pain is decreased; RASS: Alert and Calm (0) sg 09:22 Drug: Ativan 2 mg Route: IVP; Site: right antecubital; sg 09:50 Follow up: Response: No adverse reaction; RASS: Drowsy (-1) sg Intake: 10:11 IV: 250ml; Total: 250ml. sg Outcome: 11:41 Decision to Hospitalize by Provider. snw 16:50 Admitted to Med/surg accompanied by tech, via wheelchair, with chart. sg 16:50 Condition: stable 16:50 Instructed on the need for admit, Demonstrated understanding of instructions. 16:57 Patient left the ED. sg Signatures: Dispatcher [employer] EDMS Antonio Ashraf, RN RN Svetlana Zapata, NEW PATIENT ESCORT-C NEW PATIENT ESCORT-Csnw Nat Lovett Shelby, RN RN Xochilt Ocasio RN RN lp1 Hannah Samuel RN RO Cristin Hudson [facility] Yuri Gant RN RN rr5 Corrections: (The following items were deleted from the chart) 18:14 16:45 IV discontinued, intact, bleeding controlled, No redness/swelling at site. sg Pressure dressing applied, sg
--- NOTE | 2019-02-12 13:55 | P.HP ---
Certification for Inpatient Patient admitted to: Observation With expected LOS: <2 Midnights Practitioner: I am a practitioner with admitting privileges, knowledge of patient current condition, hospital course, and medical plan of care. Services: Services provided to patient in accordance with Admission requirements found in Title 42 Section 412.3 of the Code of Federal Regulations Patient History Date of Service: 02/12/19 Reason for admission: Chest pain History of Present Illness: 73-year-old man with a history of significant coronary artery disease, and hyperlipidemia presented to the emergency department with a complaint of intermittent chest pain that has been progressive. The patient was hospitalized 3 days ago for chest pain. He underwent cardiac catheterization which reported complete multivessel occlusions of [place] arteries but patent bypass graft. Medical management was recommended. Ranexa was added to his cardiac medications to control his angina symptoms. Patient did not take Ranexa due to concern for interaction with his anxiety and depression medications. Patient also reports cough with blood-stained sputum and shortness of breath with exertion. Initial troponin measured in the ED is negative. CTA thorax was performed which is negative for pulmonary embolism, negative for infiltrate but demonstrated pulmonary emphysema. Patient is placed under observation for ACS rule out and for further evaluation of hemoptysis. Allergies No Known Allergies Allergy (Unverified 09/14/16 06:43) Home Medications: Aspirin [Adult Low Dose Aspirin EC] 81 mg PO DAILY 09/14/16 Carvedilol 6.25 mg PO BID 09/14/16 Clopidogrel Bisulfate [Plavix*] 75 mg PO DAILY 09/14/16 Hydrocodone/Acetaminophen [Hydrocodone-Acetamin 10-325 mg] 1 each PO Q4H PRN 03/21 Levothyroxine [Synthroid*] 100 mcg PO [id number] 09/14/16 Atorvastatin Calcium [Lipitor] 40 mg PO BEDTIME 04/11/17 Losartan Potassium [Cozaar] 100 mg PO DAILY 04/11/17 Albuterol Inhaler [Ventolin Inhaler*] 2 puff IH Q6H PRN 02/09/19 Amitriptyline [Elavil*] 10 mg PO BEDTIME 02/09/19 Ipratropium/Albuterol Sulfate [Combivent Respimat 20-100 Mcg] 4 gm IH Q6HP PRN 02/09/19 Loratadine 10 mg PO DAILY 02/09/19 Ranolazine [Ranexa] 500 mg PO BID #60 tab.er.12h 02/09/19 hydroCHLOROthiazide [Hydrochlorothiazide] 12.5 mg PO DAILY 02/09/19 - Past Medical/Surgical History Diabetic: No -: hypertension -: CVA x2 -: thyroid radiation -: skin cancer -: chronic back pain -: hyperlipidemia -: hypothyroidism -: atrial fibrillation -: CABG -: appendectomy -: back surgery -: pain pump sufentanil, clonidine, bupivacaine -: skin graft on forehead -: cataract surgery brooks eyes - Family History Father Notes: - trailer explosion Mother -: Liver disease Notes: Brother -: Heart disease Notes: polio - Social History Alcohol use: No CD- Drugs: No Caffeine use: Yes Review of Systems Other: General: No fever, no malaise, no unintentional weight loss. Eyes: No eye discharge, CVS: No palpitation, no lightheadedness. GI: No abdominal pain, no nausea no vomit, no constipation, no diarrhea. Genitourinary: No dysuria, no urinary frequency, no incontinence, no hematuria. Musculoskeletal: No joint pains, or joint swelling, no gait instability. Neurology: No headache, no asymmetric, weakness, no problem with swallowing. Except as documented, all other systems reviewed and negative. Physical Examination - Physical Exam General: Alert, In no apparent distress, Oriented x3 HEENT: Atraumatic, Normocephalic, PERRLA, Mucous membr. moist/pink, Sclerae nonicteric Neck: Supple, JVD not distended, No Thyromegaly Respiratory: Clear to auscultation bilaterally, Normal air movement Cardiovascular: Regular rate/rhythm, Normal S1 S2, No murmurs, Edema (Trace bilateral feet edema) Capillary refill: <2 Seconds Gastrointestinal: Normal bowel sounds, Soft and benign, Non-distended, No tenderness Musculoskeletal: No swelling, Other (Right anterior chest wall is tender to palpation.) Integumentary: No rashes Neurological: Normal speech, Normal strength at 5/5 x4 extr, Cranial nerves 3- 12 intact Lymphatics: No axilla or inguinal lymphadenopathy - Studies Laboratory Data (last 24 hrs) 02/12/19 07:34: PT 12.7 H, INR 1.08 02/12/19 07:34: WBC 10.0 D, Hgb 12.2 L, Hct 36.2 L, Plt Count 194 02/12/19 07:34: Sodium 136, Potassium 4.0, BUN 11, Creatinine 0.97, Glucose 114 H, Magnesium 1.8, Total Bilirubin 1.2 H, AST 27, ALT 19, Alkaline Phosphatase 41 L Assessment and Plan - Problems (Diagnosis) (1) Angina at rest Current Visit: Yes Status: Acute (2) COPD (chronic obstructive pulmonary disease) Current Visit: Yes Status: Acute (3) CAD (coronary artery disease) Onset Date: 09/15/16 Current Visit: No Status: Acute Qualifiers: (4) Chronic pain syndrome Onset Date: 09/15/16 Current Visit: No Status: Acute (5) Hypothyroidism Current Visit: Yes Status: Acute (6) Hyperlipidemia Current Visit: Yes Status: Acute (7) Hemoptysis Current Visit: Yes Status: Acute - Plan Place patient under observation Continue to trend troponin Continue cardiac meds-Coreg, Lipitor. NTG prn IV morphine p.r.n. for pain Cannot prescribe aspirin and Plavix for now given hemoptysis. Holding aspirin and Plavix till seen by pulmonary. Start Ranexa. Discontinue amitriptyline given significant drug interaction with Ranexa. Consult to cardiology. CTA thorax reviewed: No PE or infiltrate Cause of hemoptysis is unknown Consult to optical coating technician Recommended 6 min walk test prior to discharge to see if patient qualifies for oxygen with exertion to optimize oxygen supply to the heart. - Advance Directives Does patient have a Living Will: No Does patient have a Durable POA for Healthcare: No
[2019-02-12] MEDS ORDERED: MORPHINE 2 MG/ML SYR ONE (15:47)
[2019-02-12] MEDS ORDERED: MORPHINE 4 MG/ML SYR IV PRN (15:54)
[2019-02-12] MEDS ORDERED: ACETAMINOPHEN 500 MG TAB PO PRN (16:50)
[2019-02-12 17:17] VITALS: BMI 28.0
[2019-02-12 17:51] LABS: Troponin I 0.02 ng/mL (0.0-0.045)
[2019-02-12 18:53] LABS: Urine Appearance CLEAR; Urine Bilirubin NEGATIVE (NEG); Urine Blood NEGATIVE (NEG); Urine Color YELLOW; Urine Glucose NEGATIVE (NEG); Urine Protein NEGATIVE (NEG); Urine Specific Gravity >=1.030 (1.005-1.030); Urine pH 6.5 (5.0-7.0)
[2019-02-12 18:58] LABS: Urine Microscopic Reflex NO UMIC
[2019-02-12] MEDS: METOPROLOL TAR 50 MG TAB PO SCH (20:20)
[2019-02-12] MEDS: MORPHINE 2 MG/ML SYR IV PRN (20:22)
[2019-02-13] MEDS: MORPHINE 2 MG/ML SYR IV PRN ×6 (00:47→22:31)
[2019-02-13 04:57] LABS: Absolute Lymphocytes (CBC) 1.9 K/uL (0.7-4.9); Basophils % 1.1 % (0-1.3); Hematocrit 35.1 % (39.6-49.0); Lymphocytes % 16.8 % (15.3-44.8); MPV 8.6 fL (7.6-11.3); RBC Red Blood Cell Count 3.76 M/uL (4.33-5.43)
[2019-02-13] MEDS: LEVOTHYROXINE SOD 0.1 MG TAB PO SCH (05:13)
[2019-02-13 05:21] LABS: Potassium 4.2 mmol/L (3.5-5.1)
--- NOTE | 2019-02-13 08:40 | EKG ---
Test Date: 2019-02-12 Test Time: 06:54:36 Deputy Manager: LUCAS MEASUREMENT RESULTS: Intervals: Rate: 80 AR: 176 QRSD: 100 QT: 392 QTc: 452 [place]: P: 70 AR: 176 QRS: 5 T: 103 INTERPRETIVE STATEMENTS: Normal sinus rhythm Possible Left atrial enlargement Septal infarct, age undetermined Abnormal ECG Compared to ECG 02/09/2019 02:18:07 Myocardial infarct finding now present Atrial premature complex(es) no longer present Electronically Signed On 02-13-19 08:39:13 CHEMICAL DEPENDENCY PROFESSIONAL by Antelmo Ennis
[2019-02-13] MEDS ORDERED: ALBUTEROL INHALER 60 PUFF/8 GM IH PRN (08:56)
[2019-02-13] MEDS ORDERED: IPRATROPIUM IH PRN (08:56)
[2019-02-13] MEDS: METOPROLOL TAR 50 MG TAB PO SCH (08:56)
[2019-02-13] MEDS ORDERED: ALBUTEROL SULFATE IH PRN (08:56)
[2019-02-13] MEDS: DOCUSATE NA 100 MG CAP PO SCH ×2 (08:56→21:24)
[2019-02-13] MEDS: LOSARTAN POTASSIUM 50 MG TABLET PO SCH (09:25)
[2019-02-13] MEDS: carvediloL 6.25 MG TAB PO SCH ×2 (09:25→21:25)
[2019-02-13] MEDS: hydroCHLOROthiazide 12.5 MG CAP PO SCH (09:26)
[2019-02-13] MEDS: ASPIRIN EC 81 MG TAB PO SCH (09:27)
[2019-02-13] MEDS: CLOPIDOGREL 75 MG TABLET PO SCH (09:27)
--- NOTE | 2019-02-13 12:18 | P.CNS ---
Date of Consult: 02/13/19 Chief Complaint: Chest pain and hemoptysis History of Present Illness: Patient is 73 years of age with a history of coronary artery disease admitted with chest pain radiating to the om is a neck suggestive of unstable angina he used nitroglycerin that helped in the pain reoccurred. He is seeing a air carrier inspector as an outpatient in addition is started complaining of bright red hemoptysis patient is an active smoker denies any fever or chills he has chronic back pain and is seeing a pain doctor uses short-acting bronchodilators complains of dyspnea on mild exertion Allergies No Known Allergies Allergy (Verified 02/12/19 17:44) Home Medications: Aspirin [Adult Low Dose Aspirin EC] 81 mg PO DAILY 09/14/16 Carvedilol 6.25 mg PO BID 09/14/16 Clopidogrel Bisulfate [Plavix*] 75 mg PO DAILY 09/14/16 Hydrocodone/Acetaminophen [Hydrocodone-Acetamin 10-325 mg] 1 each PO Q4H PRN 03/21 Levothyroxine [Synthroid*] 100 mcg PO [id number] 09/14/16 Atorvastatin Calcium [Lipitor] 40 mg PO BEDTIME 04/11/17 Losartan Potassium [Cozaar] 100 mg PO DAILY 04/11/17 Albuterol Inhaler [Ventolin Inhaler*] 2 puff IH Q6H PRN 02/09/19 Amitriptyline [Elavil*] 10 mg PO BEDTIME 02/09/19 Ipratropium/Albuterol Sulfate [Combivent Respimat 20-100 Mcg] 4 gm IH Q6HP PRN 02/09/19 Loratadine 10 mg PO DAILY 02/09/19 Ranolazine [Ranexa] 500 mg PO BID #60 tab.er.12h 02/09/19 hydroCHLOROthiazide [Hydrochlorothiazide] 12.5 mg PO DAILY 02/09/19 - Past Medical/Surgical History Diabetic: No -: hypertension -: CVA x2 -: thyroid radiation -: skin cancer -: chronic back pain -: hyperlipidemia -: hypothyroidism -: atrial fibrillation -: Angina -: CABG -: appendectomy -: back surgery -: pain pump sufentanil, clonidine, bupivacaine -: skin graft on forehead -: cataract surgery brooks eyes - Family History Father Notes: - trailer explosion Mother Medical History: Liver disease Notes: Brother Medical History: Heart disease Notes: polio - Social History Smoking Status: Current every day smoker Alcohol use: No CD- Drugs: No Caffeine use: Yes Place of Residence: Home Review of Systems General: Weakness Respiratory: Cough, Shortness of Breath, Hemoptysis Gastrointestinal: Constipation Physical Examination Temp Pulse Resp BP Pulse Ox 98.8 F 71 16 134/66 97 02/13/19 08:00 02/13/19 09:26 02/13/19 09:26 02/13/19 09:26 02/13/19 09:26 General: Alert, In no apparent distress, Oriented x3 HEENT: Atraumatic Neck: Supple Respiratory: Friction rub, Expiratory wheezes Cardiovascular: No edema, Normal pulses, Regular rate/rhythm Gastrointestinal: Normal bowel sounds, Soft and benign - Problems (1) COPD exacerbation Onset Date: 09/15/16 Current Visit: No Status: Acute Plan: Patient is 73 years of age admitted with chest pain suggestive of unstable angina history of coronary artery disease he also has underlying COPD continues to smoke complaining of hemoptysis CT scan does not show any evidence of a lung mass as consistent with severe COPD changes check sputum culture treat with p.o. antibiotics CRP and pro calcitonin level he will need a long-acting bronchodilator as an outpatient in addition to low-dose prednisone if his hemoptysis persists may need a bronchoscopy in from the patient PATIENT HAS ABNORMAL EKG TROPONINS NEGATIVE
[2019-02-13] MEDS: predniSONE 20 MG TAB PO SCH ×2 (13:24→21:25)
[2019-02-13] MEDS: levoFLOXacin 500 MG TAB PO SCH (13:24)
[2019-02-13] MEDS: IPRATROPIUM BROM 0.5MG/2.5ML NEB SCH ×2 (13:30→19:30)
--- NOTE | 2019-02-13 13:34 | CON ---
History Of Present Illness: Mr. Ta is 73. He has a history of bypass surgery close to a year ag o and he has chest pain. Just a few days ago, he underwent a cardiac cath under the care of Dr. Alaina edwards. All his grafts are patent. He has a severe problem with extensive small vessel disease. All o f his blood vessels are small and diffusely diseased. There were no revascularization options and it was recommended to him then that he have Ranexa therapy. The patient did not use Ranexa. He came t o the hospital because of episode of chest pain. He took a nitroglycerin. The nitroglycerin relieve d the chest pain. It was resolved and since he has been here in the hospital, although his enzymes a re normal. Allergies: PATIENT HAS NO ALLERGIES. Medications: His outpatient medications are Plavix, levothyroxine, Coreg, hydrocodone, acetaminophen , aspirin atorvastatin, losartan, albuterol, amitriptyline, hydrochlorothiazide, loratadine, and ipra tropium. He is listed as taking ranolazine, but he does not actually take it. He was worried it wou ld interfere with his other medicines. He is a continuing tobacco user. Uses no illegal drugs. Physical Examination: General: He is alert, oriented, pleasant, somewhat disheveled. He has a skin graft on his forehead. Lungs: Clear, but the breath sounds are all bronchial consistent with significant COPD. Heart: Tones are normal. Extremities: Diminished distal pulses. There is no cyanosis, clubbing, or edema. He has had daniel us stents in iliac and superficial femoral arteries under the care of Dr. Lopez. Laboratory Data: Dr. Saenz did his coronary bypass surgery in 03/2018. His electrocardiogram shows sinus rhythm, questionable septal infarct, left atrial abnormality. Impression: Mr. Ta has severe angina. He needs to try the Ranexa and use nitroglycerin right aw ay if he has chest pain. He does not need to come to the hospital if he has chest pain and it is rel ieved with nitroglycerin. JAMILA/MODL Voice ID: [id number] Report ID: [id number]
--- NOTE | 2019-02-13 15:56 | EKG ---
Test Date: 2019-02-12 Test Time: 06:57:30 Maid Supervisor: LUCAS MEASUREMENT RESULTS: Intervals: Rate: 79 [place]: 176 QRSD: 92 QT: 388 QTc: 444 [place]: P: 65 WI: 176 QRS: 14 T: 57 INTERPRETIVE STATEMENTS: Normal sinus rhythm Possible Left atrial enlargement Borderline ECG Compared to ECG 02/12/2019 06:54:36 Myocardial infarct finding no longer present Electronically Signed On 02-13-19 15:54:46 PROOF TESTER by Antelmo Ennis
[2019-02-13] MEDS: ARFORMOTEROL TARTRATE 15 MCG/2 ML VIAL.NEB NEB SCH (19:30)
[2019-02-13] MEDS ORDERED: AMITRIPTYLINE 10 MG TAB PO SCH (21:00)
[2019-02-13] MEDS ORDERED: ATORVASTATIN 40 MG TAB PO SCH (21:00)
[2019-02-13] MEDS: NITROGLYCERIN 0.4 MG/TAB SL PRN ×2 (21:18→23:22)
--- NOTE | 2019-02-13 22:01 | PN ---
Date of Progress Note: 02/13/2019 Subjective: Patient is seen and examined. Chart reviewed and case discussed with RN and Dr. Ty. Patient continues to have hemoptysis. Does report on and off intermittent palpitations and shortness of breath. Medication List: Reviewed. Code Status: Full. Objective: Vital Signs: Temperature 98.9, heart rate 63, blood pressure 94/51 , respirations 18, O2 of 95% on room air. General: Awake, alert, oriented x3, elderly male, in mild distress. CV: S1, S2. Regular rate and rhythm. Peripheral pulses present. Respiratory: Moving air well bilaterally. No wheezing or stridor. Gastrointestinal: Abdomen is soft, nontender, nondistended. Positive bowel sounds. Extremities: No clubbing, cyanosis, or edema. Neuro: Nonfocal. Laboratory Data: WBC 11.3, H and H 11.7 and 35.1, platelets 203. Sodium 137, potassium 4.2, chloride 103, CO2 of 28, BUN 11, creatinine 1, glucose 116, calcium 8.6. Troponin less than 0.02. CRP less than 2.9. Procalcitonin less than 0.05. Sputum cultures pending, showing 3+ gram-negative rods. ID and sensitivity are pending. Assessment: 73-year-old male with: 1. Angina, at rest. Cardiac enzymes are negative x3. Recent cardiac cath showed multiple small-vessel disease with maximal medical management. Patient is noncompliant with Ranexa. We will continue to encourage Ranexa and nitroglycerin. Appreciate Dr. Ennis' input. 2. Chronic obstructive pulmonary disease, emphysema. Continue with nebulizer treatments and supplemental oxygen as needed. 3. Coronary artery disease of [place] artery and [place] heart with angina, on aspirin and Plavix. 4. Hemoptysis, likely secondary to blood thinners. Appreciate Pulmonology input. CT angio is negative for PE. May need bronchoscopy if not improving. Hemoglobin is stable. 5. Chronic pain syndrome, stable. 6. Hypothyroidism, stable. 7. Mixed hyperlipidemia. Continue statin. Plan: Discharge once cleared by Pulmonology. May need bronchoscopy if worsening. SA/MODL Voice ID: [id number] Report ID: [id number] [facility] HOSPITALJeremiah
[2019-02-14] MEDS: IPRATROPIUM BROM 0.5MG/2.5ML NEB SCH ×2 (02:00→08:35)
[2019-02-14] MEDS: MORPHINE 2 MG/ML SYR IV PRN ×3 (02:32→10:56)
[2019-02-14] MEDS: NITROGLYCERIN 0.4 MG/TAB SL PRN ×2 (04:35→08:45)
[2019-02-14] MEDS ORDERED: LEVOTHYROXINE SOD 0.1 MG TAB PO SCH (06:00)
[2019-02-14] MEDS: LEVOTHYROXINE SOD 0.1 MG TAB PO SCH (06:27)
--- NOTE | 2019-02-14 08:01 | P.PN ---
Subjective Date of Service: 02/14/19 Chief Complaint: Chest pain and hemoptysis Subjective: Improving (Patient's hemoptysis has diminished significantly still continues to complain of chest pain he says that was present all night long still short of breath) Review of Systems General: Weakness Respiratory: Cough, Shortness of Breath Physical Examination - Vital Signs Temperature: 98.9 F Blood Pressure: 139/73 Pulse: 88 Respirations: 16 Pulse Ox (%): 95 - Physical Exam General: Alert, In no apparent distress, Oriented x3 Respiratory: Clear to auscultation bilaterally Cardiovascular: No edema, Regular rate/rhythm, Normal S1 S2 Assessment & Plan - Problems (Diagnosis) (1) COPD exacerbation Onset Date: 09/15/16 Current Visit: No Status: Acute Plan: Patient admitted with COPD exacerbation from pulmonary standpoint of view he can be discharged home on either Advair or Symbicort low-dose prednisone 10 mg twice a day Levaquin for about 5 days patient does not qualify for home O2 to follow up with me in 2 weeks no evidence of myocardial infarction
[2019-02-14] MEDS: ARFORMOTEROL TARTRATE 15 MCG/2 ML VIAL.NEB NEB SCH (08:35)
[2019-02-14] MEDS: predniSONE 20 MG TAB PO SCH (08:46)
[2019-02-14] MEDS: ASPIRIN EC 81 MG TAB PO SCH (08:46)
[2019-02-14] MEDS: DOCUSATE NA 100 MG CAP PO SCH (08:46)
[2019-02-14] MEDS: hydroCHLOROthiazide 12.5 MG CAP PO SCH (08:46)
[2019-02-14] MEDS: carvediloL 6.25 MG TAB PO SCH (08:46)
[2019-02-14] MEDS: CLOPIDOGREL 75 MG TABLET PO SCH (08:46)
[2019-02-14] MEDS: levoFLOXacin 500 MG TAB PO SCH (08:46)
[2019-02-14] MEDS: LOSARTAN POTASSIUM 50 MG TABLET PO SCH (08:46)
--- NOTE | 2019-02-14 08:46 | EKG ---
Test Date: 2019-02-13 Test Time: 23:44:43 Steam Tunnel Feeder: RT Daniels MEASUREMENT RESULTS: Intervals: Rate: 84 ME: 188 QRSD: 104 QT: 404 QTc: 477 [place]: P: 59 ME: 188 QRS: -10 T: 37 INTERPRETIVE STATEMENTS: Normal sinus rhythm Normal ECG Compared to ECG 02/12/2019 06:57:30 No significant changes Electronically Signed On 02-14-19 08:45:15 LAND MANAGER by Martínez Byrne
[2019-02-14 10:12] VITALS: O2SAT 94
[2019-02-14 12:13] VITALS: BP 126/60; TEMP 98.8
--- NOTE | 2019-02-14 19:38 | PN ---
Mr. Ta is being seen on 02/14/2019 for followup. He was admitted on 02/12/2019 with unstable ang felix. Mr. Ta is very well known to have severe coronary artery disease. Recently, had a heart ca theterization showing patent REEDER to the LAD, patent graft to the OM, occluded RCA, and severe port gamble vessel disease distally and proximally, not a candidate for intervention, and needs to go home on Ra nexa 500 mg b.i.d. in addition to nitroglycerin p.r.n., as well as beta-blockers, aspirin, Lipitor, a nd Plavix. I will be happy to see him in the office in the next week or 2. He is pain free overnigh t. [place] has been ruled out. EKG is normal. Troponin is normal. GRISELDA/CHANDNI Voice ID: [id number] Report ID: [id number]
--- NOTE | 2019-02-15 03:29 | DS ---
Date of Discharge: 02/14/2019 Consultants: 1.Martínez Byrne M.D. with Cardiology. 2.Julito Ty M.D. with Pulmonology. 3.Antelmo Ennis M.D. with Cardiology. Admitting Diagnoses: 1.Angina at rest. 2.Chronic obstructive pulmonary disease. 3.Coronary artery disease. 4.Chronic pain syndrome. 5.Hypothyroidism. 6.Mixed hyperlipidemia. 7.Hemoptysis. Discharge Diagnoses: 1.Angina at rest, improved with Ranexa. 2.Hemoptysis, resolved. 3.Chronic obstructive pulmonary disease, emphysema. 4.Coronary artery disease, alutiiq artery, alutiiq heart with angina. 5.Chronic pain syndrome. 6.Hypothyroidism. 7.Mixed hyperlipidemia. Hospital Course: Patient is a 73-year-old male with past medical history of heart disease, hyperlipi demia, chronic pain, history of CVA, thyroid radiation, skin cancer, who has had bypass surgery, was recently discharged from the hospital when he had a cardiac cath done and had multivessel occlusions of alutiiq arteries, but patent bypass grafts. Patient continues to smoke. Ranexa was added to his m edications, however he did not take his Ranexa due to concern for interaction with his psych medicati ons. CT angio was done, which was negative for PE and infiltrate and did find to have some pulmonary emphysema. Patient was admitted for further workup. His cardiac enzymes were negative, ACS was rul ed out. Cardiology was reconsulted. They did not recommend any further intervention. Patient will need maximal medical management. Patient has chronic pain for which he seems to display pain medicat ion seeking behavior. Patient takes multiple nitro. He does not take Ranexa as he is supposed to. Patient was also seen by Pulmonology, Dr. Ty, for his shortness of breath and pulmonary emphyse ma. He was recommended to be sent home on Advair, prednisone, and Levaquin and follow up with Dr. Mauro clemons in his office. Patient was counseled that he has multivessel coronary artery disease. He con tinues to smoke. He has multiple risk factors for worsening of this disease if he does not stop smok ing. He needs to be on Ranexa to help with his medical management of his pain. He was counseled cisco t he will likely experience chest pain with strenuous activities, therefore he needs to avoid strenuo us activity. He understands that his cardiac function is diminished due to history of CABG and della nued multivessel disease, which is not amenable to any further intervention and due to his coronary a rtery disease, his ability to perform strenuous activities will be limited due to demand mismatch. H e can be maximized on medical therapy including Ranexa. Patient was doing well overall. His breathi ng has improved. He was on room air. He was then cleared for discharge from both Cardiology and Pul monology standpoint. Patient is to follow up with his primary care physician in 2-3 days. Follow up with public health worker, Dr. Byrne in 2 weeks. Follow up with assembler wet wash, Dr. Ty in 2 weeks. Return to ER for worsening condition. Diet: Heart healthy. Activity: No strenuous activity. Medications: As per medication reconciliation list. Physical Examination: GENERAL: Awake, alert, and oriented x3, not in any acute distress. CV: S1, S2. No murmurs. Respiratory: Moving air well bilaterally. Abdomen: Abdomen is soft, nontender, nondistended. Positive bowel sounds. Extremities: No clubbing, cyanosis, or edema. Neurologic: Nonfocal. SA/MODL Voice ID: [id number] Report ID: [id number]
== END 2019-02-14 14:10 | disposition home or self-care (01) ==
LOC: ER 06:54 → ERHOLD 13:40 → 4TH 16:35
PROVIDERS: ADMIT Internal Medicine; ATTEND Internal Medicine
DX: I25.110 Atherosclerotic heart disease of native coronary artery with unstable angina pectoris (principal); J44.1 Chronic obstructive pulmonary disease with (acute) exacerbation; R04.2 Hemoptysis; I10 Essential (primary) hypertension; E03.9 Hypothyroidism, unspecified; E78.2 Mixed hyperlipidemia; G89.4 Chronic pain syndrome; Z95.1 Presence of aortocoronary bypass graft; Z85.828 Personal history of other malignant neoplasm of skin; Z86.73 Personal history of transient ischemic attack (TIA), and cerebral infarction without residual deficits; Z79.82 Long term (current) use of aspirin; F17.210 Nicotine dependence, cigarettes, uncomplicated
CPT/HCPCS: 96365; 93005 ×3; 87070; 85025 ×2; 80048 ×2; 36415; 86900; 83735; 86850; 87205; 85610; 80061; 86901; 80076; 84443; 87077; 87186; 81003; 84484 ×4; 84145; 83880; 86140; 71275; 71045; 94640; 94760 ×5; 96375; 99285; 96366; Q9967; J3010; J2270 ×11; J7605 ×2; J7040; G0378 ×4; J7512

== ENCOUNTER 2019-04-28 02:48 | Inpatient (IN) | payer OTHER ==
[2019-04-28] MEDS ORDERED: IPRATROPIUM BROM 0.5MG/2.5ML ONE ×3 (03:26→14:40)
[2019-04-28] MEDS ORDERED: LEVALBUTEROL 1.25 MG/3 ML NEB ONE (03:26)
[2019-04-28] MEDS ORDERED: FAMOTIDINE 20 MG/2 ML VIAL IV ONE (03:26)
[2019-04-28] MEDS ORDERED: PIPER/TAZO/NS 3.375gm 3.375 GM/100 ML BAG ONE ×2 (03:27→12:41)
--- NOTE | 2019-04-28 03:28 | ER ---
Nurse's Notes [facility] Name: Jomar Ta Age: 73 yrs Sex: Male : 1945 Arrival Date: 04/28/2019 Time: 02:53 Bed 16 Private MD: Diagnosis: Chronic obstructive pulmonary disease with (acute) exacerbation;Hypoxemia;Atrial fibrillation and flutter-hx of;Dyspnea;Cardiomegaly;Unspecified combined systolic (congestive) and diastolic (congestive) heart failure;Respiratory failure, unspecified with hypercapnia;Respiratory failure, unspecified with hypoxia;Acidosis-respiratory acidosis Presentation: 04/28 03:00 Presenting complaint: EMS states: Reports pt has been SOB for 3 days, saw Dr.Aggarwal koehler yesterday. EMS reported audible wheezing. EMS gave A and A treatment, solumedrol 125, cardizem 15. Transition of care: patient was not received from another setting of care. Onset of symptoms was April 28, 2019. Risk Assessment: Do you want to hurt yourself or someone else? Patient reports no desire to harm self or others. Initial Sepsis Screen: Does the patient meet any 2 criteria? RR > 20 per min. HR > 90 bpm. Yes Does the patient have a suspected source of infection? Yes: Other: SOB. Care prior to arrival: Medication(s) given: Albuterol Neb Atrovent Neb Normal saline infusion, Solu-Medrol 125, Cardizem 15. 03:00 Method Of Arrival: EMS: [facility] ea 03:00 Acuity: CARROLL 2 ea Triage Assessment: 02:58 General: Appears uncomfortable, Behavior is restless. General: Appears distressed, ea Behavior is. Pain: Unable to use pain scale. FLACC scale score is 0 out of 10. Neuro: Level of Consciousness is awake, alert, obeys commands, Oriented to person, place, situation. Cardiovascular: Patient's skin is warm and dry. Respiratory: Airway is patent Respiratory effort is labored, Respiratory pattern is tachypnea Breath sounds are coarse Breath sounds are diminished Breath sounds with wheezes. Derm: Skin is clammy, Skin is pale, Skin temperature is cool. Historical: - Home Meds: 02:58 amitriptyline 10 mg Oral tab 1 tab nightly [Active]; Amitriptyline Oral [Active]; ea clopidogrel 75 mg Oral tab 1 tab once daily [Active]; aspirin 81 mg Oral TbEC 1 tab once daily [Active]; Aspirin Oral [Active]; atorvastatin 40 mg Oral tab 1 tab once daily [Active]; carvedilol 6.25 mg Oral tab 1 tab 2 times per day for Hypertension [Active]; hydrochlorothiazide 12.5 mg Oral tab 1 tab 2 times per day [Active]; [place] 10-325 mg Oral tab 1 tab q4hrs prn [Active]; Hydrocodone-Acetaminophen Oral [Active]; levothyroxine 100 mcg tab 1 tab once daily [Active]; loratadine 10 mg Oral tab 1 tab once daily [Active]; losartan 100 mg Oral tab 1 tab once daily [Active]; - PMHx: 02:58 Atrial Fib; Back pain; Cancer; COPD; Hyperlipidemia; CVA; Hypertension; Hypothyroidism; ea Myocardial infarction; Skin Caner; - PSHx: 02:58 Angioplasty; CABG; ea - Immunization history:: Adult Immunizations unknown. - Social history:: Smoking status: unknown. - Ebola Screening: : No symptoms or risks identified at this time. Screenin:59 Abuse screen: Denies threats or abuse. Nutritional screening: No deficits noted. ea Tuberculosis screening: No symptoms or risk factors identified. Fall Risk None identified. Assessment: 02:48 Reassessment: see triage assessment. ea 03:10 Reassessment: RT and provider at bedside, pt placed on BiPAP. ea 04:50 Reassessment: Patient and/or family updated on plan of care and expected duration. Pain ea level reassessed. Pt remains on BiPAP, tolerating well. Hospitalist at bedside updating pt and family on plan of care. Pt remains tachypneic but respirations rate has improved. Reports chest pain has subsided. Marino output 700 at this time. Vital Signs: 02:58 BP 148 / 79; Pulse 99; Resp 42; Temp 97.2; Pulse Ox 97% on Nebulizer Mask; Weight 86.18 ea kg; Height 6 ft. 0 in. (182.88 cm); 04:03 BP 150 / 78; Pulse 98; Resp 32; Pulse Ox 100% on BiPAP; ea 04:48 BP 129 / 70; Pulse 85; Resp 28; Pulse Ox 100% on BiPAP; ea 05:14 BP 112 / 59; Pulse 77; Resp 23; Pulse Ox 100% on BiPAP; ea 02:58 Body Mass Index 25.77 (86.18 kg, 182.88 cm) ea ED Course: 02:48 Arm band placed on right wrist. Patient placed in an exam room, on a stretcher, on ea oxygen, on diagnostic cardiac sonographer, on pulse oximetry. 02:53 Patient arrived in ED. ea 02:55 Patrick Lyman MD is Attending Physician. gustavo 02:58 Maintain EMS IV. Dressing intact. Good blood return noted. Site clean \T\ dry. Gauge \T\ ea site: 18 G RAC. 03:09 Triage completed. ea 03:09 Patient has correct armband on for positive identification. Placed in gown. Bed in low ea position. Call light in reach. 03:24 Gwen Narvaez MD is Hospitalizing Provider. gustavo 03:38 XRAY Chest (1 view) In Process Unspecified. EDMS 03:42 Glenny De León, RO is Primary Nurse. ea 03:50 Inserted saline lock: 22 gauge in right hand, using aseptic technique. ea 04:02 No provider procedures requiring assistance completed. Patient admitted, IV remains in ea place. 04:12 Blood Culture Adult (2) Sent. 04:25 Marino cath inserted, using sterile technique, 18 Fr., by me, balloon inflated, to ea gravity drainage, returned clear yellow urine. Patient tolerated well. 08:54 Repeat lab(s) drawn. by sc, sent to lab. dh3 09:06 Primary Nurse role handed off by Glenny De León, RO tw2 09:06 Chantale Diego, RO is Primary Nurse. tw2 11:03 EKG done, by industrial tech instructor. reviewed by Onur Giraldo MD. tc Administered Medications: 02:55 Drug: Decadron - Dexamethasone 10 mg Route: IVP; Site: right antecubital; ea 04:44 Follow up: Response: No adverse reaction ea 03:42 Drug: Lasix 60 mg Route: IVP; Site: right antecubital; ea 04:44 Follow up: Response: No adverse reaction ea 03:58 Drug: morphine 2 mg Route: IVP; Site: right hand; ea 04:45 Follow up: Response: No adverse reaction; Pain is decreased; RASS: Alert and Calm (0) ea 03:59 Drug: Xopenex 2.5 mg Route: Inhalation; ea 03:59 Drug: AtroVENT Aerosol 0.5 mg Route: Inhalation; ea 03:59 Drug: Zofran 4 mg Route: IVP; Site: right hand; ea 04:45 Follow up: Response: No adverse reaction ea 04:00 Drug: Zosyn 3.375 grams Route: IVPB; Infused Over: 60 mins; Site: right hand; ea 04:00 Drug: Pepcid 20 mg Route: IVP; Site: right hand; ea 04:43 Follow up: Response: No adverse reaction ea 05:07 Drug: Lovenox 60 mg Route: Sub-Q; Site: left lower abdomen; ea 05:17 Follow up: Response: No adverse reaction ea Outcome: 03:27 Decision to Hospitalize by Provider. gustavo 04:33 Instructed on the need for admit, Demonstrated understanding of instructions. ea 05:10 Admitted to ER Hold. [facility]. ea 05:10 Condition: stable 16:31 Patient left the ED. hb Signatures: Dispatcher [employer] EDMS Patrick Lyman MD MD cha Callis, Tiffany, catering operations manager EKG Ttc Hannah Samuel RN RN hb Wise, Tara RN RN 2 Mary Hogan [facility] Glenny De León RN RN Faby Conley
--- NOTE | 2019-04-28 03:28 | EDPHYS ---
Physician Documentation [facility] Name: Jomar Ta Age: 73 yrs Sex: Male : 1945 Arrival Date: 04/28/2019 Time: 02:53 Bed 16 Private MD: ED Physician Patrick Lyman HPI: 04/28 03:08 This 73 yrs old Male presents to ER via Unassigned with complaints of sob, gustavo wheezing and chest pain. 03:08 The patient has shortness of breath at rest, with light activity. Onset: The gustavo symptoms/episode began/occurred 3 day(s) ago. Duration: The symptoms are continuous, and are steadily getting worse. Historical: - Home Meds: 02:58 amitriptyline 10 mg Oral tab 1 tab nightly [Active]; Amitriptyline Oral [Active]; ea clopidogrel 75 mg Oral tab 1 tab once daily [Active]; aspirin 81 mg Oral TbEC 1 tab once daily [Active]; Aspirin Oral [Active]; atorvastatin 40 mg Oral tab 1 tab once daily [Active]; carvedilol 6.25 mg Oral tab 1 tab 2 times per day for Hypertension [Active]; hydrochlorothiazide 12.5 mg Oral tab 1 tab 2 times per day [Active]; Concord 10-325 mg Oral tab 1 tab q4hrs prn [Active]; Hydrocodone-Acetaminophen Oral [Active]; levothyroxine 100 mcg tab 1 tab once daily [Active]; loratadine 10 mg Oral tab 1 tab once daily [Active]; losartan 100 mg Oral tab 1 tab once daily [Active]; - PMHx: 02:58 Atrial Fib; Back pain; Cancer; COPD; Hyperlipidemia; CVA; Hypertension; Hypothyroidism; ea Myocardial infarction; Skin Caner; - PSHx: 02:58 Angioplasty; CABG; ea - Immunization history:: Adult Immunizations unknown. - Social history:: Smoking status: unknown. - Ebola Screening: : No symptoms or risks identified at this time. ROS: 03:10 Constitutional: Negative for fever, chills, and weight loss, Eyes: Negative for injury, gustavo pain, redness, and discharge, ENT: Negative for injury, pain, and discharge, Neck: Negative for injury, pain, and swelling, Abdomen/GI: Negative for abdominal pain, nausea, vomiting, diarrhea, and constipation, Back: Negative for injury and pain, : Negative for injury, bleeding, discharge, and swelling, MS/Extremity: Negative for injury and deformity, Skin: Negative for injury, rash, and discoloration, Neuro: Negative for headache, weakness, numbness, tingling, and seizure, Psych: Negative for depression, anxiety, suicide ideation, homicidal ideation, and hallucinations, Allergy/Immunology: Negative for hives, rash, and allergies, Endocrine: Negative for neck swelling, polydipsia, polyuria, polyphagia, and marked weight changes, Hematologic/Lymphatic: Negative for swollen nodes, abnormal bleeding, and unusual bruising. 03:10 Cardiovascular: Positive for chest pain, palpitations. 03:10 Respiratory: Positive for cough, shortness of breath, wheezing, inspiratory, expiratory. Exam: 03:10 Constitutional: This is a well developed, well nourished patient who is awake, alert, gustavo and in no acute distress. Head/Face: Normocephalic, atraumatic. Eyes: Pupils equal round and reactive to light, extra-ocular motions intact. Lids and lashes normal. Conjunctiva and sclera are non-icteric and not injected. Cornea within normal limits. Periorbital areas with no swelling, redness, or edema. ENT: Nares patent. No nasal discharge, no septal abnormalities noted. Tympanic membranes are normal and external auditory canals are clear. Oropharynx with no redness, swelling, or masses, exudates, or evidence of obstruction, uvula midline. Mucous membranes moist. Neck: Trachea midline, no thyromegaly or masses palpated, and no cervical lymphadenopathy. Supple, full range of motion without nuchal rigidity, or vertebral point tenderness. No Meningismus. Chest/axilla: Normal chest wall appearance and motion. Nontender with no deformity. No lesions are appreciated. Abdomen/GI: Soft, non-tender, with normal bowel sounds. No distension or tympany. No guarding or rebound. No evidence of tenderness throughout. Back: No spinal tenderness. No costovertebral tenderness. Full range of motion. Male : Normal genitalia with no discharge or lesions. Skin: Warm, dry with normal turgor. Normal color with no rashes, no lesions, and no evidence of cellulitis. MS/ Extremity: Pulses equal, no cyanosis. Neurovascular intact. Full, normal range of motion. Neuro: Awake and alert, GCS 15, oriented to person, place, time, and situation. Cranial nerves II-XII grossly intact. Motor strength 5/5 in all extremities. Sensory grossly intact. Cerebellar exam normal. Normal gait. Psych: Awake, alert, with orientation to person, place and time. Behavior, mood, and affect are within normal limits. 03:10 Cardiovascular: Rate: tachycardic, Rhythm: irregularly irregular, Pulses: Pulses are 4+ in bilateral radial, brachial, femoral, popliteal, posterior tibial and and dorsalis pedis arteries.. Heart sounds: normal, Edema: is not appreciated, JVD: is not appreciated. 03:10 Respiratory: moderate respiratory distress is noted, Respirations: labored breathing, that is moderate, Breath sounds: decreased breath sounds, rhonchi, + upper airway congestion. wheezing: inspiratory expiratory Respiratory rate: 24 Vital Signs: 02:58 BP 148 / 79; Pulse 99; Resp 42; Temp 97.2; Pulse Ox 97% on Nebulizer Mask; Weight 86.18 ea kg; Height 6 ft. 0 in. (182.88 cm); 04:03 BP 150 / 78; Pulse 98; Resp 32; Pulse Ox 100% on BiPAP; ea 04:48 BP 129 / 70; Pulse 85; Resp 28; Pulse Ox 100% on BiPAP; ea 05:14 BP 112 / 59; Pulse 77; Resp 23; Pulse Ox 100% on BiPAP; ea 02:58 Body Mass Index 25.77 (86.18 kg, 182.88 cm) ea MDM: 02:55 Patient medically screened. [facility] 03:12 Data reviewed: vital signs, nurses notes, lab test result(s), EKG, radiologic studies, gustavo plain films. 04/28 03:02 Order name: Blood Culture Adult (2) 04/28 03:02 Order name: BMP; Complete Time: 04:46 04/28 03:02 Order name: CBC with Diff; Complete Time: 03:52 04/28 03:02 Order name: Ckmb; Complete Time: 04:46 04/28 03:02 Order name: CPK; Complete Time: 04:46 04/28 03:02 Order name: D-Dimer; Complete Time: 06:55 04/28 03:02 Order name: Hepatic Function; Complete Time: 04:46 04/28 03:02 Order name: Lipase; Complete Time: 04:46 04/28 03:02 Order name: Magnesium; Complete Time: 04:46 04/28 03:02 Order name: NT PRO-BNP; Complete Time: 04:46 04/28 03:02 Order name: PT-INR; Complete Time: 06:55 04/28 03:02 Order name: Ptt, Activated; Complete Time: 06:55 04/28 03:02 Order name: Troponin (emerg Dept Use Only); Complete Time: 04:46 04/28 03:03 Order name: Blood Culture [facility] 04/28 03:04 Order name: Blood Culture Adult (2) [facility] 04/28 03:04 Order name: Influenza Screen (a \T\ B); Complete Time: 03:52 [facility] 04/28 03:04 Order name: ABG; Complete Time: 04:46 [facility] 04/28 03:09 Order name: Lactate; Complete Time: 03:52 [facility] 04/28 03:42 Order name: Thyroid Stimulating Hormone; Complete Time: 04:46 [facility] 04/28 03:49 Order name: Glucose, Ancillary Testing; Complete Time: 03:52 [facility] 04/28 09:32 Order name: CKMB Creatine Kinase MB [facility] 04/28 09:32 Order name: Troponin I [facility] 04/28 03:02 Order name: EKG; Complete Time: 03:03 04/28 03:02 Order name: Cardiac monitoring; Complete Time: 04:10 04/28 03:02 Order name: IV Saline Lock; Complete Time: 04:12 04/28 03:02 Order name: Labs collected and sent; Complete Time: 04:12 04/28 03:02 Order name: O2 Per Protocol; Complete Time: 04:12 04/28 03:02 Order name: O2 Sat Monitoring; Complete Time: 04:12 04/28 03:04 Order name: XRAY Chest (1 view); Complete Time: 09:29 [facility] 04/28 03:04 Order name: EKG; Complete Time: 03:05 [facility] 04/28 03:04 Order name: Cardiac monitoring; Complete Time: 04:12 [facility] 04/28 03:04 Order name: EKG - Nurse/Tech; Complete Time: 03:06 [facility] 04/28 03:04 Order name: IV Saline Lock; Complete Time: 04:12 [facility] 04/28 03:04 Order name: Labs collected and sent; Complete Time: 04:12 [facility] 04/28 03:04 Order name: O2 Per Protocol; Complete Time: 04:12 [facility] 04/28 03:04 Order name: O2 Sat Monitoring; Complete Time: 04:12 [facility] 04/28 03:04 Order name: BIPAP [facility] 04/28 03:53 Order name: Marino; Complete Time: 04:34 gustavo 04/28 06:57 Order name: CT Chest For PE Angio [facility] 04/28 08:27 Order name: CT; Complete Time: 08:41 EDMS 04/28 15:39 Order name: ABG Arterial Blood Gas EDMS Administered Medications: 02:55 Drug: Decadron - Dexamethasone 10 mg Route: IVP; Site: right antecubital; ea 04:44 Follow up: Response: No adverse reaction ea 03:42 Drug: Lasix 60 mg Route: IVP; Site: right antecubital; ea 04:44 Follow up: Response: No adverse reaction ea 03:58 Drug: morphine 2 mg Route: IVP; Site: right hand; ea 04:45 Follow up: Response: No adverse reaction; Pain is decreased; RASS: Alert and Calm (0) ea 03:59 Drug: Xopenex 2.5 mg Route: Inhalation; ea 03:59 Drug: AtroVENT Aerosol 0.5 mg Route: Inhalation; ea 03:59 Drug: Zofran 4 mg Route: IVP; Site: right hand; ea 04:45 Follow up: Response: No adverse reaction ea 04:00 Drug: Zosyn 3.375 grams Route: IVPB; Infused Over: 60 mins; Site: right hand; ea 04:00 Drug: Pepcid 20 mg Route: IVP; Site: right hand; ea 04:43 Follow up: Response: No adverse reaction ea 05:07 Drug: Lovenox 60 mg Route: Sub-Q; Site: left lower abdomen; ea 05:17 Follow up: Response: No adverse reaction ea Disposition: 04/28/19 03:27 Hospitalization ordered by Gwen Narvaez for Inpatient Admission. Preliminary diagnosis are Chronic obstructive pulmonary disease with (acute) exacerbation, Hypoxemia, Atrial fibrillation and flutter - hx of, Dyspnea, Cardiomegaly, Unspecified combined systolic (congestive) and diastolic (congestive) heart failure, Respiratory failure, unspecified with hypercapnia, Respiratory failure, unspecified with hypoxia, Acidosis - respiratory acidosis. - Bed requested for Intensive Care Unit. - Status is Inpatient Admission. hb - Condition is Fair. - Problem is new. - Symptoms have improved. UTI on Admission? No Signatures: Dispatcher [employer] [facility] Aurea Alford, DATA COLLECTION TECHNICIAN-C DATA COLLECTION TECHNICIAN-CkPatrick Oro MD MD cha Garcia, Cindy, RN RN cg Baxter, Heather, RN RN hb Antunez, Elena, RN RN ea Habalo, Winsy wh Botello, Elizabeth eb Corrections: (The following items were deleted from the chart) 03:33 03:05 CBC+H.LAB.BRZ ordered. [facility] 03:33 03:05 PROTIME (+INR)+COAG.LAB.BRZ ordered. [facility] 03:39 03:27 Hospitalization Ordered by Gwen Narvaez MD for Inpatient Admission. Preliminary gustavo diagnosis is Chronic obstructive pulmonary disease with (acute) exacerbation; Hypoxemia; Atrial fibrillation and flutter - hx of; Dyspnea. Bed requested for Telemetry/MedSurg (Inpatient). Status is Inpatient Admission. Condition is Fair. Problem is new. Symptoms have improved. UTI on Admission? No. [facility] 03:43 03:05 BASIC METABOLIC PANEL+C.LAB.BRZ ordered. [facility] 03:43 03:05 HEPATIC FUNCTION+C.LAB.BRZ ordered. [facility] 03:43 03:05 MAGNESIUM+C.LAB.BRZ ordered. [facility] 03:43 03:05 PROBNP+C.LAB.BRZ ordered. [facility] 03:43 03:05 TROPONIN (EMERG DEPT USE ONLY)+C.LAB.BRZ ordered. [facility] 03:43 03:05 THYROID STIMULAT HORMONE+C.LAB.BRZ ordered. [facility] 03:55 03:39 04/28/2019 03:27 Hospitalization Ordered by Gwen Narvaez MD for Inpatient gustavo Admission. Preliminary diagnosis is Chronic obstructive pulmonary disease with (acute) exacerbation; Hypoxemia; Atrial fibrillation and flutter - hx of; Dyspnea; Cardiomegaly; Unspecified combined systolic (congestive) and diastolic (congestive) heart failure. Bed requested for Telemetry/MedSurg (Inpatient). Status is Inpatient Admission. Condition is Fair. Problem is new. Symptoms have improved. UTI on Admission? No. gustavo 04:07 03:55 04/28/2019 03:27 Hospitalization Ordered by Gwen Narvaez MD for Inpatient cg Admission. Preliminary diagnosis is Chronic obstructive pulmonary disease with (acute) exacerbation; Hypoxemia; Atrial fibrillation and flutter - hx of; Dyspnea; Cardiomegaly; Unspecified combined systolic (congestive) and diastolic (congestive) heart failure; Respiratory failure, unspecified with hypercapnia; Respiratory failure, unspecified with hypoxia; Acidosis - respiratory acidosis. Bed requested for Telemetry/MedSurg (Inpatient). Status is Inpatient Admission. Condition is Fair. Problem is new. Symptoms have improved. UTI on Admission? No. gustavo 04:11 03:02 EKG - Nurse/Tech ordered. [facility] 04:11 04:07 04/28/2019 03:27 Hospitalization Ordered by Gwen Narvaez MD for Inpatient gustavo Admission. Preliminary diagnosis is Chronic obstructive pulmonary disease with (acute) exacerbation; Hypoxemia; Atrial fibrillation and flutter - hx of; Dyspnea; Cardiomegaly; Unspecified combined systolic (congestive) and diastolic (congestive) heart failure; Respiratory failure, unspecified with hypercapnia; Respiratory failure, unspecified with hypoxia; Acidosis - respiratory acidosis. Bed requested for [facility] ER HOLD. Status is Inpatient Admission. Condition is Fair. Problem is new. Symptoms have improved. UTI on Admission? No. cg 05:08 04:11 04/28/2019 03:27 Hospitalization Ordered by Gwen Narvaez MD for Inpatient cg Admission. Preliminary diagnosis is Chronic obstructive pulmonary disease with (acute) exacerbation; Hypoxemia; Atrial fibrillation and flutter - hx of; Dyspnea; Cardiomegaly; Unspecified combined systolic (congestive) and diastolic (congestive) heart failure; Respiratory failure, unspecified with hypercapnia; Respiratory failure, unspecified with hypoxia; Acidosis - respiratory acidosis. Bed requested for Intensive Care Unit. Status is Inpatient Admission. Condition is Fair. Problem is new. Symptoms have improved. UTI on Admission? No. gustavo 14:24 05:08 04/28/2019 03:27 Hospitalization Ordered by Gwen Narvaez MD for Inpatient eb Admission. Preliminary diagnosis is Chronic obstructive pulmonary disease with (acute) exacerbation; Hypoxemia; Atrial fibrillation and flutter - hx of; Dyspnea; Cardiomegaly; Unspecified combined systolic (congestive) and diastolic (congestive) heart failure; Respiratory failure, unspecified with hypercapnia; Respiratory failure, unspecified with hypoxia; Acidosis - respiratory acidosis. Bed requested for [facility] ER HOLD. Status is Inpatient Admission. Condition is Fair. Problem is new. Symptoms have improved. UTI on Admission? No. cg 16:31 14:24 04/28/2019 03:27 Hospitalization Ordered by Gwen Narvaez MD for Inpatient Admission. Preliminary diagnosis is Chronic obstructive pulmonary disease with (acute) exacerbation; Hypoxemia; Atrial fibrillation and flutter - hx of; Dyspnea; Cardiomegaly; Unspecified combined systolic (congestive) and diastolic (congestive) heart failure; Respiratory failure, unspecified with hypercapnia; Respiratory failure, unspecified with hypoxia; Acidosis - respiratory acidosis. Bed requested for Intensive Care Unit. Status is Inpatient Admission. Condition is Fair. Problem is new. Symptoms have improved. UTI on Admission? No. eb
[2019-04-28 03:34] LABS: Absolute Lymphocytes (CBC) 2.2 K/uL (0.7-4.9); Basophils % 0.4 % (0-1.3); Hematocrit 37.4 % (39.6-49.0); Lymphocytes % 14.2 % (15.3-44.8); MPV 8.7 fL (7.6-11.3)
[2019-04-28] MEDS ORDERED: FUROSEMIDE 100 MG/10 ML VIAL IV ONE (03:42)
[2019-04-28 03:47] LABS: Arterial Blood Carboxyhemoglob 0.3 % (0-1.5); Blood Gas Oxyhemoglobin 96.4 % (94-97); Blood O2 Saturation 97.6 % (92-98.5)
[2019-04-28] MEDS ORDERED: dexAMETHasone 10 MG/ML VIAL ONE (03:47)
[2019-04-28] MEDS ORDERED: MORPHINE 2 MG/ML SYR ONE ×2 (03:52→12:44)
[2019-04-28] MEDS ORDERED: ONDANSETRON 4 MG/2 ML VIAL ONE (03:52)
[2019-04-28 04:10] LABS: Albumin 3.3 g/dL (3.4-5.0); Bilirubin Direct 0.2 mg/dL (0-0.2); Bilirubin Total 0.6 mg/dL (0.2-1.0); CKMB Creatine Kinase MB 1.2 ng/mL (0.3-3.6); Magnesium 1.7 mg/dL (1.8-2.4); Potassium 4.6 mmol/L (3.5-5.1); Thyroid Stimulating Hormone 1.46 uIU/mL (0.360-3.740); Troponin (Emerg Dept Use Only) 0.06 ng/mL (0.0-0.045)
[2019-04-28] MEDS ORDERED: LIDOCAINE VISCOUS 2% SOLN 15 ML UDC ONE (04:18)
[2019-04-28] MEDS ORDERED: ENOXAPARIN 60 MG/0.6 ML SQ ONE (05:06)
[2019-04-28 05:31] VITALS: BMI 25.7
[2019-04-28] MEDS ORDERED: ONDANSETRON 4 MG/2 ML VIAL IV PRN (05:56)
[2019-04-28] MEDS ORDERED: ALBUTEROL 2.5 MG/3 ML NEB SOL NEB PRN (05:56)
--- NOTE | 2019-04-28 06:19 | P.HP ---
Certification for Inpatient With expected LOS: >2 Midnights Practitioner: I am a practitioner with admitting privileges, knowledge of patient current condition, hospital course, and medical plan of care. Services: Services provided to patient in accordance with Admission requirements found in Title 42 Section 412.3 of the Code of Federal Regulations Patient History Date of Service: 04/28/19 Reason for admission: chest pain/respiratory failure/coppd History of Present Illness: zahra curry is a 73yoM w/ pmhx of angina, copd, CAD ambler artery, ambler heart with angina, S/P CABG and stent placement, now with angina at rest due to cardiac demand mismatch,chronic pain syndrome, hypothyroidism, mixed hyperlipidemia, h/o CVA, thyroid radiation, skin cancer, recently hospitalized and discharged < 6mths ago from the hospital for angina at rest. previous LHC noted multivessel occlusions of ambler arteries, but patent bypass grafts.. per pt quit tobacco use in 02/2019. he presents to ED w/ acute chest pain and respiratory distress. he was noted to walk to the restroom which is not far from his bed and this resulted in him having chest pain and then SOB which resulted in respiratory distress that led to being seen in the ED. per the they saw dr chavarria in clinic for more defined evaluation of COPD. in the ED he was started on bipap and given lasix 60 x1 w/ good diaresis. per patient continues to take multiple SL nitro daily due to CP noted after minimal effort/ambulation, thus he is on SL nitro daily more than prescribed. nitro seems to be the only medication he is taking and a lot of it. per previous notation pt is supposed to be on ranexa. on ED evaulation he appears to be in less distress although still present and able to speak one word answers w/ his providing the majority of the information. on recent hospitalization he was counseled that he will likely experience chest pain with strenuous activities, therefore he needs to avoid strenuous activity with his cardiac function being diminished due to history of CABG and cardiac multivessel disease, which is not amenable to any further intervention and due to his coronary artery disease, and due to the cardiac demand mismatch his ability to perform strenuous activities will be limited Allergies No Known Allergies Allergy (Verified 04/28/19 05:27) Home Medications: Aspirin [Adult Low Dose Aspirin EC] 81 mg PO DAILY 09/14/16 Clopidogrel Bisulfate [Plavix*] 75 mg PO DAILY 09/14/16 Hydrocodone/Acetaminophen [Hydrocodone-Acetamin 10-325 mg] 1 each PO Q4H PRN 03/21 Levothyroxine [Synthroid*] 100 mcg PO [id number] 09/14/16 carvediloL [Carvedilol] 6.25 mg PO BID 09/14/16 Atorvastatin Calcium [Lipitor] 40 mg PO BEDTIME 04/11/17 Losartan Potassium [Cozaar] 100 mg PO DAILY 04/11/17 Albuterol Inhaler [Ventolin Inhaler*] 2 puff IH Q6H PRN 02/09/19 Amitriptyline [Elavil*] 10 mg PO BEDTIME 02/09/19 Ipratropium/Albuterol Sulfate [Combivent Respimat 20-100 Mcg] 4 gm IH Q6HP PRN 02/09/19 Loratadine 10 mg PO DAILY 02/09/19 hydroCHLOROthiazide [Hydrochlorothiazide] 12.5 mg PO DAILY 02/09/19 Fluticasone/Salmeterol [Advair 250-50 Diskus] 1 each IH Q12HR #60 disk.w.dev 03/23 Nitroglycerin [Nitrostat*] 0.4 mg SL Q5MX3, Q15MX1, Q30M PRN #30 tab 02/14/19 Ranolazine [Ranexa] 500 mg PO BID #60 tab.er.12h 02/14/19 levoFLOXacin [Levaquin*] 500 mg PO DAILY #5 tab 02/14/19 predniSONE [Deltasone] 10 mg PO BID #20 tab 02/14/19 - Past Medical/Surgical History Has patient received pneumonia vaccine in the past: No Diabetic: No -: hypertension -: CVA x2 -: thyroid radiation -: skin cancer -: chronic back pain -: hyperlipidemia -: hypothyroidism -: atrial fibrillation -: chf -: CABG -: appendectomy -: back surgery -: pain pump sufentanil, clonidine, bupivacaine -: skin graft on forehead -: cataract surgery brooks eyes - Family History Father Notes: - trailer explosion Mother -: Liver disease Notes: Brother -: Heart disease Notes: polio - Social History Smoking Status: Former smoker Alcohol use: No CD- Drugs: No Caffeine use: Yes Place of Residence: Home Review of Systems General: As per HPI Respiratory: As per HPI Cardiovascular: Chest Pain, Orthopnea Gastrointestinal: Unremarkable Physical Examination - Physical Exam General: Alert, Oriented x2, Acute distress, Other (pt in respiratory distress, at the bedside. BIPAP in place, no accessory muscle use ) Respiratory: Diminished, Other (decreased aeration/distant breath sounds) Cardiovascular: Edema (of LE ) Capillary refill: <2 Seconds Gastrointestinal: Hypoactive, Soft and benign, Non-distended Musculoskeletal: Swelling (mild ) Integumentary: No rashes Neurological: Other (gait not tested) External genitalia: Deferred Rectal: Deferred - Studies Laboratory Data (last 24 hrs) 04/28/19 03:10: Sodium Cancelled, Potassium Cancelled, BUN Cancelled, Creatinine Cancelled, Glucose Cancelled, Magnesium Cancelled, Total Bilirubin Cancelled, AST Cancelled, ALT Cancelled, Alkaline Phosphatase Cancelled 04/28/19 03:10: WBC 15.5 H, Hgb 12.2 L, Hct 37.4 L, Plt Count 253 04/28/19 03:10: Sodium 126 L, Potassium 4.6, BUN 12, Creatinine 1.29, Glucose 221 H, Magnesium 1.7 L, Total Bilirubin 0.6, AST 16, ALT 16, Alkaline Phosphatase 43 L, Lipase 53 L 04/28/19 03:04: PT Cancelled, INR Cancelled 04/28/19 03:04: WBC Cancelled, Hgb Cancelled, Hct Cancelled, Plt Count Cancelled Microbiology Data (last 24 hrs): 04/28/19 03:20 Nasopharnyx Influenza Type A Antigen Screen - Final 04/28/19 03:20 Nasopharnyx Influenza Type B Antigen Screen - Final Assessment and Plan - Plan 73yoM admitted w/ #1 CHF exacerbation - h/o agina with minimal effort, CAD/CABG started on IV lasix, monitor on tele admitted to ICU obtain a1c, tsh lipid profile trend CE, strict I/O, daily weights ASA, morphine, BB, will likely need to consider nitro paste vs long acting nitro ( in order to decrease the amount of SL pt takes daily) #2 respiratory failure Pulm consulted duonebs, steroids and IS once off of BIPAP #3 CAD /CABG -acute exacerbation with angina will need cardiac rehab if able -thus SW eval for dispo DVT lovenox - Advance Directives Does patient have a Living Will: No Does patient have a Durable POA for Healthcare: No
[2019-04-28] MEDS ORDERED: DOCUSATE NA 100 MG CAP PO PRN (06:20)
[2019-04-28 06:44] LABS: Protime INR 1.19
[2019-04-28] MEDS ORDERED: PNEUMOCOCCAL VACCINE 0.5 ML IMVAC ONE (08:00)
--- NOTE | 2019-04-28 08:26 | RAD REPORT ---
EXAM DESCRIPTION: CT - Chest For Pe Angio - 04/28/2019 8:08 am CLINICAL HISTORY: Chest pain. COPD;Dyspnea COMPARISON: Chest For Pe Angio dated 02/12/2019 TECHNIQUE: CT angiogram of the pulmonary arteries was performed with MIP. All CT scans are performed using dose optimization technique as appropriate and may include automated exposure control or mA/KV adjustment according to patient size. FINDINGS: No evidence of pulmonary thromboembolism. No acute aortic finding demonstrated. Advanced COPD is present. Small bilateral pleural effusions, larger on the right. No concerning bony finding. IMPRESSION: No evidence of pulmonary thromboembolism. Advanced COPD with small pleural effusions.
--- NOTE | 2019-04-28 08:34 | EKG ---
Test Date: 2019-04-28 Test Time: 02:57:01 Partner Marketing Manager: JERRY MEASUREMENT RESULTS: Intervals: Rate: 98 DC: 200 QRSD: 116 QT: 366 QTc: 467 [place]: P: 50 DC: 200 QRS: -22 T: 76 INTERPRETIVE STATEMENTS: Normal sinus rhythm with sinus arrhythmia Intraventricular conduction delay Nonspecific ST and T wave abnormality Prolonged QT Abnormal ECG Compared to ECG 02/13/2019 23:44:43 Intraventricular conduction delay now present ST (T wave) deviation now present Prolonged QT interval now present Electronically Signed On 04-28-19 08:34:03 MEASUREMENT OPERATOR by Antelmo Ennis
[2019-04-28] MEDS ORDERED: ASPIRIN 325 MG TAB PO SCH (09:00)
[2019-04-28] MEDS ORDERED: ENOXAPARIN 40 MG/0.4 ML SQ SCH (09:00)
--- NOTE | 2019-04-28 09:04 | RAD REPORT ---
EXAM DESCRIPTION: RAD - Chest Single View - 04/28/2019 3:38 am CLINICAL HISTORY: Cough;COPD Chest pain. COMPARISON: Chest Single View dated 02/12/2019; Chest Single View dated 02/09/2019; Chest Single View dated 04/11/2017; Chest Single View dated 09/15/2016; Chest For Pe Angio dated 04/28/2019 FINDINGS: Portable technique limits examination quality. Advanced COPD is present. The heart is mildly enlarged. No displaced fractures.Sternotomy wires prese nt IMPRESSION: Advanced COPD.
[2019-04-28] MEDS ORDERED: ALBUTEROL 2.5 MG/3 ML NEB SOL ONE ×2 (09:08→14:40)
[2019-04-28] MEDS: ALBUTEROL 2.5 MG/3 ML NEB SOL NEB SCH ×3 (09:10→20:25)
[2019-04-28] MEDS: IPRATROPIUM BROM 0.5MG/2.5ML NEB SCH ×3 (09:10→20:25)
[2019-04-28 09:32] LABS: Troponin I 3.82 ng/mL (0.0-0.045)
[2019-04-28] MEDS: FUROSEMIDE 40 MG/4 ML VIAL IV SCH ×2 (10:00→18:22)
[2019-04-28] MEDS ORDERED: ENOXAPARIN 30 MG/0.3 ML SQ SCH (10:30)
[2019-04-28] MEDS ORDERED: carvediloL 6.25 MG TAB ONE (10:49)
[2019-04-28] MEDS ORDERED: FUROSEMIDE 40 MG/4 ML VIAL ONE (10:49)
[2019-04-28] MEDS ORDERED: ASPIRIN 325 MG TAB ONE (10:49)
[2019-04-28] MEDS ORDERED: ENOXAPARIN 30 MG/0.3 ML SQ ONE (10:50)
[2019-04-28] MEDS ORDERED: NITROGLYCERIN 0.4 MG/TAB SL ONE (11:01)
[2019-04-28] MEDS: NITROGLYCERIN 0.4 MG/TAB SL PRN ×3 (11:12→18:31)
[2019-04-28] MEDS ORDERED: PIPER/TAZO/NS 3.375gm 3.375 GM/100 ML BAG IVPB SCH (12:00)
[2019-04-28] MEDS: METHYLPREDNISOLONE 125 MG INJ IV SCH ×2 (12:00→18:21)
[2019-04-28] MEDS ORDERED: METHYLPREDNISOLONE 40 MG INJ ONE (12:41)
[2019-04-28] MEDS: MORPHINE 2 MG/ML SYR IV PRN ×3 (12:59→19:30)
[2019-04-28] MEDS ORDERED: SODIUM CHLORIDE 0.9% 10ML INJ IV PRN (14:04)
--- NOTE | 2019-04-28 14:25 | ECHO ---
HEIGHT: 6 ft 0 in WEIGHT: 190 lb 0 oz DATE OF STUDY: 04/28/[address]: Gwen Narvaez 2-DIMENSIONAL: YES M.MODE: YES DOPPLER: YES COLOR FLOW: YES TDS: YES PORTABLE: NO DEFINITY: NO BUBBLE STUDY: NO DIAGNOSIS: CHEST PAIN CARDIAC HISTORY: CATHERIZATION: YES SURGERY: NO PROSTHETIC VALVE: NO PACEMAKER: NO MEASUREMENTS (cm) DIASTOLIC (NORMALS) SYSTOLIC (NORMALS) IVSd 1.2 (0.6-1.2) LA Diam (1.9-4.0) LVEF 62% LVIDd 4.9 (3.5-5.7) LVIDs 3.2 (2.0-3.5) %FS 34% LVPWd 1.1 (0.6-1.2) Ao Diam 2.7 (2.0-3.7) 2 DIMENSIONAL ASSESSMENT: RIGHT ATRIUM: NORMAL LEFT ATRIUM: DILATED RIGHT VENTRICLE: NORMAL LEFT VENTRICLE: LEFT VENTRICULAR HYPERTROPHY TRICUSPID VALVE: NORMAL MITRAL VALVE: NORMAL PULMONIC VALVE: NORMAL AORTIC VALVE: SCLEROSIS PERICARDIAL EFFUSION: NONE AORTIC ROOT: NORMAL LEFT VENTRICULAR WALL MOTION: NORMAL DOPPLER/COLOR FLOW: MILD AORTIC AND MITRAL REGURGITATION. COMMENTS: NORMAL LEFT VENTRICULAR EJECTION FRACTION. LEFT VENTRICULAR HYPERTROPHY. DILATED LEFT ATRIUM. AORTIC SCLEROSIS WITH NO AORTIC STENOSIS. MILD AORTIC AND MITRAL REGURGITATION. TECHNOLOGIST: Luis Miguel WATSON
--- NOTE | 2019-04-28 14:31 | EKG ---
Test Date: 2019-04-28 Test Time: 10:50:52 Car Greaser: ABEL MEASUREMENT RESULTS: Intervals: Rate: 75 MO: 214 QRSD: 104 QT: 446 QTc: 498 [place]: P: 68 MO: 214 QRS: -4 T: 70 INTERPRETIVE STATEMENTS: Sinus rhythm with 1st degree AV block Possible Left atrial enlargement ST & T wave abnormality, consider anterior ischemia Prolonged QT Abnormal ECG Compared to ECG 04/28/2019 02:57:01 First degree AV block now present Possible ischemia now present Sinus arrhythmia no longer present Intraventricular conduction delay no longer present ST (T wave) deviation still present Electronically Signed On 04-28-19 14:30:07 GENERAL FOUNDRY WORKER by Antelmo Ennis
[2019-04-28] MEDS ORDERED: PANTOPRAZOLE 40 MG INJ ONE (15:24)
[2019-04-28 15:37] LABS: Arterial Blood Carboxyhemoglob 0.7 % (0-1.5); Blood Gas Oxyhemoglobin 96.5 % (94-97); Blood O2 Saturation 98.2 % (92-98.5)
[2019-04-28] MEDS ORDERED: ENOXAPARIN 100 MG/ML SYR SQ SCH (18:00)
[2019-04-28 18:24] LABS: CKMB Creatine Kinase MB 12.2 ng/mL (0.3-3.6)
[2019-04-28] MEDS: PIPER/TAZO/NS 3.375gm 3.375 GM/100 ML BAG IVPB SCH (18:33)
[2019-04-28 18:49] LABS: Troponin I 5.9 ng/mL (0.0-0.045)
[2019-04-28] MEDS ORDERED: NITROGLYCERIN/D5W 50 MG/250 ML BTL IV PRN (18:57)
--- NOTE | 2019-04-28 19:38 | CON ---
Chief Complaint: Pain in the chest. History Of Present Illness: Mr. Ta is 73-year-old. He has a history of intracoronary stents, hi story of bypass surgery and last cardiac cath was in February 2019. At that time Dr. Byrne was abl e to angiogram the coronary arteries and grafts. He has a patent left internal mammary graft to the LAD, patent saphenous vein graft to the obtuse marginal. He was left dominant. His left main, LAD, circumflex, and right coronary artery were totally or subtotally occluded. All of his blood flow com es through the 2 grafts. All arteries distal to the grafts were severely diseased and Dr. Byrne sa id that Mr. Ta had no revascularization options, said he had inoperable coronary heart disease. Mr. Ta was placed on Ranexa and seems to have taken that. He now presents to the hospital, [place] he has been having chest pain steadily for the last month, although presently it is a little bit be tter. Since he has been here, a CT angio of the chest does not reveal pulmonary embolus. His electr ocardiograms did not reveal infarction, injury, or ischemia, but troponins are clearly elevated indic ating myocardial necrosis. One of his EKGs showed widening of the QRS. The next one was slightly mo re narrow, this is usually a sign of diffuse severe ischemia. Medications: Patient's outpatient medications are: Plavix, levothyroxine, carvedilol, hydrocodone, aspirin, atorvastatin, losartan, albuterol, amitriptyline, hydrochlorothiazide, loratadine, ipratropi um, fluticasone, nitroglycerin, ranolazine, Protonix, and buspirone. Physical Examination: General: He is 6 feet tall, 190 pounds. Alert, oriented, pleasant. Denies chest pain during the ex am. Lungs: Diffuse large airway sounds. He is using a BiPAP mask. Heart: Reveals an S4 gallop. No significant murmur is heard. Abdomen: Soft. Extremities: Mild edema. Distal pulses diminished. Patient was a cigarette smoker until very recen tly, does not smoke now. Impression And Plan: The patient has unstable angina with severe coronary heart disease, it has been determined inoperable at his last cardiac cath. The patient voiced some interest in being transferr ed to Dr. Lopez, then he went back and forth, so we are going to put him in the hospital, do our be st to manage him medically and see if he wants to undergo another cardiac cath to take another look. It is possible the stent could make something better, but overall his prognosis is very poor with th ings like this. It would be better to have him transferred to the care of Dr. Lopez, whom he knows a lot better, would be lot more comfortable discussing end of life issues with me or Dr. Byrne, I believe. JAMILA/CHANDNI Voice ID: [id number] Report ID: [id number]
[2019-04-28] MEDS ORDERED: carvediloL 6.25 MG TAB PO SCH (21:00)
[2019-04-28] MEDS ORDERED: HOME MED 1 EA UNK (Ranolazine [Ranexa] 500 MG) PO SCH (21:00)
[2019-04-28] MEDS ORDERED: AMITRIPTYLINE 10 MG TAB PO SCH (21:00)
[2019-04-28] MEDS ORDERED: BUSPIRONE HCL 5 MG TABLET PO SCH (21:00)
[2019-04-28] MEDS ORDERED: ATORVASTATIN 80 MG TAB PO SCH (21:00)
[2019-04-28] MEDS ORDERED: HOME MED 1 EA UNK (Buspirone Hcl [Buspar] 10 MG) PO SCH (21:00)
--- NOTE | 2019-04-28 21:39 | PN ---
Date of Progress Note: 04/28/2019 Subjective: Patient is seen and examined. Chart reviewed and case discussed with RN and Dr. Ennis. Patient continues to have intermittent chest pain improved with nitroglycerin. Physical Examination: Vital Signs: Temperature 98.5, heart rate 80, blood pressure 109/67, respirations 20, O2 of 90% on BiPAP. General: Awake, alert, oriented x3 elderly male in some mild distress due to pain as well as some respiratory distress. CV: S1, S2. Regular rate and rhythm. Respiratory: Diminished breath sounds. Patient is tachypneic with use of accessory muscles. Wheezing is heard. Gastrointestinal: Abdomen is soft, nontender, nondistended. Positive bowel sounds. Extremities: No clubbing, cyanosis, or edema. Neurologic: Nonfocal. Code Status: Full code. Laboratory Data: Troponin 0.06, 3.82. WBC 15.5, H and H of 12.2 and 37.4, neutrophils 70%. Repeat ABG shows pH of 7.42, pCO2 of 36, pO2 of 123, bicarb 23 , significantly improved from previous ABG which shows pH of 7.16. Blood cultures are pending. Influenza screen is negative. Assessment: A 73-year-old male with: 1. Diastolic congestive heart failure exacerbation, acute. We will continue with congestive heart failure guidelines, diuresis. Appreciate Cardiology input. His echocardiogram shows EF of 62%, left ventricular hypertrophy. Aortic sclerosis without aortic stenosis, dilated left atrium, mild aortic and mitral regurg. 2. Ega-CP-gfbotfmlx myocardial infarction. Patient has elevated troponin level of 3.48. We will continue on Lovenox 1 mg/kg q.12 hours. Patient has very poor coronary anatomy. It is inoperable from his previous stent. Case discussed with Dr. Ennis. We will likely go for heart catheterization for further assessment. The patient normally sees Dr. Lopez in [place]. Patient has not requested any transfer to outside facility. 3. Acute respiratory failure with hypoxia and hypercapnia improved with BiPAP. Continue supplemental oxygen. Pulmonology is on board. 4. Acute chronic obstructive pulmonary disease exacerbation. We will continue with DuoNeb, steroids. 5. History of coronary artery disease status post coronary artery bypass graft. The patient's [place] arteries have stenosed. His 2-vessel bypass are still open from the last heart catheterization. 6. Essential hypertension. Resume home medications as appropriate. 7. History of cerebrovascular accident. 8. History of skin cancer. 9. Chronic back pain, midline, without sciatica, stable. 10. Mixed hyperlipidemia. Continue statin. 11. Hypothyroidism. Continue Synthroid. 12. Atrial fibrillation. Remains in sinus rhythm. 13. Metabolic acidosis, improving. 14. Hypertensive heart disease. Overall, patient has a poor prognosis. If patient does not express any wishes to be transferred [facility] to [facility]. Lopez, we will plan for heart catheterization. Cardiac catheterization. Continue diuresis. CT angio is negative for PE. Patient does have some small pleural effusions and COPD changes. SA/MODL Voice ID: [id number] Report ID: [id number] JIAN
[2019-04-28 23:32] VITALS: O2SAT 98
[2019-04-29] MEDS: METHYLPREDNISOLONE 125 MG INJ IV SCH
[2019-04-29] MEDS: MORPHINE 2 MG/ML SYR IV PRN (01:23)
[2019-04-29] MEDS: ALBUTEROL 2.5 MG/3 ML NEB SOL NEB SCH (01:50)
[2019-04-29] MEDS: IPRATROPIUM BROM 0.5MG/2.5ML NEB SCH (01:50)
[2019-04-29] MEDS: PIPER/TAZO/NS 3.375gm 3.375 GM/100 ML BAG IVPB SCH (03:00)
[2019-04-29 04:29] VITALS: BP 129/68; TEMP 97.4
[2019-04-29] MEDS ORDERED: LEVOTHYROXINE SOD 0.1 MG TAB PO SCH (06:00)
[2019-04-29] MEDS ORDERED: PANTOPRAZOLE 40 MG INJ IVP SCH (09:00)
[2019-04-29] MEDS ORDERED: LOSARTAN POTASSIUM 50 MG TABLET PO SCH (09:00)
[2019-04-29] MEDS ORDERED: LORATADINE 10 MG TAB PO SCH (09:00)
[2019-04-29] MEDS ORDERED: LOSARTAN POTASSIUM 50 MG PO SCH (09:00)
[2019-04-29] MEDS ORDERED: HOME MED 1 EA UNK (Loratadine [Loratadine] 10 MG) PO SCH (09:00)
--- NOTE | 2019-04-29 14:21 | DS ---
Date of Discharge: 04/29/2019 Consultants: Dr. Ennis with Cardiology. Procedures: None. Discharge Diagnoses: 1.Pgj-ND-msoizxphm myocardial infarction. 2.Diastolic congestive heart failure exacerbation, acute. 3.Acute respiratory failure with hypoxia and hypercapnia on BiPAP. 4.Acute chronic obstructive pulmonary disease exacerbation. 5.History of coronary artery disease status post coronary artery bypass graft. 6.Essential hypertension. 7.History of cerebrovascular accident. 8.History of skin cancer. 9.Chronic back pain, midline, without sciatica. 10.Mixed hyperlipidemia, stable. 11.Hypothyroidism on Synthroid. 12.Atrial fibrillation, paroxysmal, currently in sinus. 13.Metabolic acidosis, improving. 14.Hypertensive heart disease. 15.Hyponatremia. 16.Hypomagnesemia. Hospital Course: Patient is an ill 73-year-old male with multiple chronic medical conditions includi ng end-stage heart disease, inoperable congestive heart failure, atrial fibrillation, status post CAB G, chronic pain syndrome, hypothyroidism, hyperlipidemia, CVA, thyroid radiation, skin cancer, COPD, comes in with chest pain, respiratory failure, and COPD. He was started on BiPAP because he was hype rcapnic and acidotic. Patient had NSTEMI as well. His initial cardiac enzyme was 0.06, bumped up to 3.82 and then 5.9. Patient was seen by Dr. Ennis, Cardiology. Plan was for a cardiac cath on , however, patient kept having intermittent chest pain. He was placed in the ICU and was started o n nitroglycerin drip, however, still had continued chest pain. The patient wished transfer to his [facility], Dr. Lopez. His repeat ABG showed improvement, his pH improved from 7.16 to 7.4 2, hypercapnia was corrected. Patient continued to have chest pain and therefore possibility of card iogenic shock requiring balloon angioplasty and the patient's wishes to be transferred to his primary video game maker, patient was transferred by sherif, Dr. Narvaez to [facility]. His CT an shar of the chest was negative for PE, did show COPD and small pleural effusions. Patient was then tr ansferred to [facility] for further evaluation and treatment by his primary video game maker. For physical exam findings please see progress note dictated on day of transfer. Total time transferring patient was 37 minutes. SA/MODL Voice ID: [id number] Report ID: [id number]
--- NOTE | 2019-04-29 23:16 | EKG ---
Test Date: 2019-04-28 Test Time: 19:33:37 Parliamentary Archivist: RT Daniels MEASUREMENT RESULTS: Intervals: Rate: 95 VT: 204 QRSD: 122 QT: 402 QTc: 505 [place]: P: 63 VT: 204 QRS: -11 T: 95 INTERPRETIVE STATEMENTS: Sinus rhythm with premature ventricular complexes Nonspecific intraventricular conduction delay Marked ST abnormality, possible anterolateral subendocardial injury Abnormal ECG Compared to ECG 04/28/2019 10:50:52 Ventricular premature complex(es) now present Intraventricular conduction delay now present First degree AV block no longer present ST (T wave) deviation still present Electronically Signed On 04-29-19 23:16:22 BANKING PIN ADJUSTER by Antelmo Ennis
== END 2019-04-29 02:50 | disposition short-term general hospital (02) | DRG 280 ==
LOC: ER 02:48 → ERHOLD 05:17 → 3RD-ICU 16:06
PROVIDERS: ADMIT Internal Medicine; ATTEND Internal Medicine
PROC: 5A09357 Assistance with Respiratory Ventilation, Less than 24 Consecutive Hours, Continuous Positive Airway Pressure (ICD-10-PCS; principal; 2019-04-28)
DX: I21.4 Non-ST elevation (NSTEMI) myocardial infarction (principal); I50.33 Acute on chronic diastolic (congestive) heart failure; J96.02 Acute respiratory failure with hypercapnia; J96.01 Acute respiratory failure with hypoxia; J44.1 Chronic obstructive pulmonary disease with (acute) exacerbation; E87.2 Acidosis; E87.1 Hypo-osmolality and hyponatremia; I25.10 Atherosclerotic heart disease of native coronary artery without angina pectoris; I11.0 Hypertensive heart disease with heart failure; M54.9 Dorsalgia, unspecified; E78.2 Mixed hyperlipidemia; E03.9 Hypothyroidism, unspecified; I48.0 Paroxysmal atrial fibrillation; E83.42 Hypomagnesemia; Z95.1 Presence of aortocoronary bypass graft; Z85.828 Personal history of other malignant neoplasm of skin; Z86.73 Personal history of transient ischemic attack (TIA), and cerebral infarction without residual deficits
CPT/HCPCS: 36415; 51702; 71045; 71275; 80048; 80076; 82550; 82553; 82805; 82947; 83605; 83690; 83735; 83880; 84443; 84484; 85025; 85379; 85610; 85730; 87040; 87804; 93005; 93306; 94640; 94660; 96372; 96374; 96375; 99285; C9113; J1100; J1650; J1940; J2270; J2405; J2543; J2920; J2930; Q9967